=== PATIENT | male | born 1955 | race Caucasian/White ===

== ENCOUNTER 2020-12-28 16:43 | Emergency (ER) | payer MEDICARE, SELFPAY ==
--- NOTE | ~2020-12-28 | CT_ITS ---
EXAMINATION: CT ABDOMEN AND PELVIS WITHOUT CONTRAST CLINICAL INFORMATION: Abdominal pain, groin pain COMPARISON: 10/18/2018 TECHNIQUE: Multidetector volumetric imaging was performed from the superior aspect of the liver through the pubic symphysis. Sagittal and coronal reformatted images were obtained on the technologist's workstation. This CT examination was performed using dose optimization techniques as appropriate, variously including the following: *Automated exposure control *Adjustment of mA and/or kV according to patient size (this includes techniques or standardized protocols for targeted exams where dose is matched to indication/reason for exam; i.e. extremities or head) *Use of iterative reconstruction technique DLP: 681 mGy-cm FINDINGS: LUNG BASES: The visualized lung bases are unremarkable. LIVER, GALLBLADDER, AND BILIARY TREE: The liver is normal in size, shape, and attenuation. No biliary ductal dilatation is present. Slightly increased size of a now 1.1 cm (previously 0.8 cm hypodense lesion within the right hepatic lobe measuring internal attenuation of 1 Hounsfield unit. This most likely represents a small cyst or hemangioma. The gallbladder is unremarkable with no evidence of radiopaque gallstones, gallbladder wall thickening, or obvious pericholecystic inflammatory changes. PANCREAS: Unremarkable. SPLEEN: Unremarkable. ADRENAL GLANDS: Unremarkable. KIDNEYS AND URETERS: The kidneys are normal in size, shape, and attenuation. No hydronephrosis, hydroureter, or calculi seen. No perinephric stranding. BLADDER: Unremarkable. GASTROINTESTINAL TRACT: The small and large bowel are unremarkable. The appendix is unremarkable. ABDOMINAL WALL: Left inguinal hernia containing a loop of colon, incompletely imaged. LYMPH NODES: No lymphadenopathy within the abdomen or pelvis by CT criteria. VASCULAR: No evidence of abdominal aortic aneurysm. The IVC is singular and right-sided. PELVIC VISCERA: Unremarkable. OSSEOUS STRUCTURES: Degenerative changes of the hips and spine. No acute or suspicious osseous abnormality. CT/CT abdomen pelvis wo con IMPRESSION: Left inguinal hernia containing a loop of large bowel that, although is incompletely imaged, shows no signs of obstruction.
[2020-12-28 16:54] VITALS: BP 131/68; PULSE 68; RESP 16; TEMP 36.8; O2SAT 94; BMI 31.8
--- NOTE | 2020-12-28 17:08 | ED.GENADULT ---
HPI - General Adult General Chief complaint: General Medical Stated complaint: groin pain Source: patient Mode of arrival: ambulatory Limitations: no limitations History of Present Illness HPI narrative: 65-year-old male presents with left-sided groin pain that started this morning. States that when he coughs or moves the pain increases and he feels a bulge to the left lower quadrant. He does not report any difficulty urinating or having a bowel movement. Does not report fevers, chills, chest pain or pressure, palpitations, dizziness, lightheadedness, weakness, edema, abdominal distention, dysuria, hematuria, nausea, vomiting, diarrhea or constipation. Onset (ago): day(s) Location: abdomen Radiation: non-radiation Severity: moderate Severity scale (1-10): 6 Quality: aching Pain Consistency: constant Relieving factors: none Exacerbating factors: movement Associated symptoms: denies other symptoms Treatments prior to arrival: none Related Data Allergies Allergy/AdvReac Type Severity Reaction Status Date / Time acetaminophen [Tylenol] Allergy Unknown Verified 09/22/19 00:00 amoxicillin [AMOXICILLIN] Allergy Unknown SHORTNESS Unverified 02/08/20 14:56 OF BREATH aspirin Allergy Unknown Verified 09/22/19 00:00 dextromethorphan Allergy Unknown DYSPNEA Unverified 02/08/20 14:56 [From ROBAFEN DM COUGH-CHEST CONGEST] erythromycin base Allergy Unknown HIVES Unverified 02/08/20 14:56 [ERYTHROMYCIN BASE] guaifenesin Allergy Unknown DYSPNEA Unverified 02/08/20 14:56 [From ROBAFEN DM COUGH-CHEST CONGEST] ibuprofen [IBUPROFEN] Allergy Unknown HIVES Unverified 02/08/20 14:56 penicillin V Allergy Unknown Verified 09/22/19 00:00 E-mycin Allergy Unknown hives, SOB Uncoded 09/22/19 00:00 Motrin Allergy Unknown Uncoded 09/22/19 00:00 PCN Allergy Unknown dizziness, Uncoded 09/22/19 00:00 lightheades Robafen Allergy Unknown Uncoded 09/22/19 00:00 Review of Systems Review of Systems: Constitutional: No Fever, No Chills ENT/Mouth: No Ear Pain, No Hoarseness, No sore throat Eyes: No Eye Pain, No Swelling, No Redness, No Foreign Body Cardiovascular: No Chest Pain, No SOB Respiratory: No Cough, No Dyspnea Gastrointestinal: Positive right lower quadrant pain, No Nausea, No Vomiting, No Diarrhea, No abdominal Pain Genitourinary: No Dysuria, No Hematuria Musculoskeletal: No joint pain, No Myalgias, No Joint Swelling Skin: No Skin lacerations, No rash Neuro: No Weakness, No Numbness, No Paresthesias, No Loss of Consciousness, No Dizziness, No Headache Psych: No Anxiety/Panic, No Depression Heme/Lymph: no easy bruising, no Lymphadenopathy Endocrine: No Polyuria, No Polydipsia Yes all other systems are reviewed and are negative [facility] Past Medical History Attestation statement: The following information was validated with the patient. Source: old records reviewed Medical History Hypertension Social History Social History Advance Directives: No Advance Directives Information Provided: Yes Physical Exam Vital Signs: Vital Signs: Last Vital Signs Temp 98.3 F 12/28/20 16:54 Pulse 68 12/28/20 16:54 Resp 16 12/28/20 16:54 BP 131/68 12/28/20 16:54 Pulse Ox 94 12/28/20 16:54 Body Mass Index 31.8 Appearance: Alert. Oriented X3. No acute distress. Eyes: Pupils equal, round and reactive to light. ENT: Pharynx normal. Neck: Normal inspection. Neck supple. CVS: Normal heart rate and rhythm. Pulses normal. Respiratory: No respiratory distress. Breath sounds normal. Abdomen: Soft and tender to left inguinal with bulging consistent with bowel hernia. No testicular pain to palpation. Skin: Skin warm and dry. Normal skin color. Normal skin turgor. Extremities: No lower extremity edema. Moves all extremities against resistance. Gait well-balanced and well coordinated with cane. Neuro: No motor deficit. No sensory deficit. Cranial nerves 2-12 intact. Course Course Course Narrative: 65-year-old male presents with sudden onset of left lower quadrant pain. States that he feels a bulging and tightness in the inguinal area. Does not report any testicular pain, trouble with bowel or bladder. Denies fevers or chills. Appears nontoxic and is afebrile. Palpable bulging to the left inguinal consistent with hernia. Will order CT scan of abdomen to rule out incarceration. CT scan shows a inguinal hernia with bowel without incarceration. I was able to reduce this with a small amount of pressure, patient pain was alleviated immediately. I did discuss this case with on-call surgeon Dr. Bourgeois, plan of care is for patient to follow-up with Dr. Pro in the office on Wednesday. I did discuss this with the patient, patient agrees, and will call for an appointment. Patient verbalized understanding of and agrees with plan of care discharge home. Consultations Consultation #1: Christelle Time: 19:14 Medical Decision Making Differential Diagnosis Differential Diagnosis: Hernia, diverticulitis, bowel obstruction, acute abdomen, kidney stones Medical Records Medical records reviewed: Yes I reviewed the patient's medical records. Lab Data Lab results reviewed: Yes I reviewed the patient's lab results. Result diagrams: 12/28/20 17:42 12/28/20 17:42 Labs: Lab Results 12/28/20 12/28/20 12/28/20 Range/Units 17:42 17:42 19:06 WBC 8.8 (4.8-10.8) X10*3/uL RBC 4.64 (4.60-5.80) X10*6/uL Hgb 14.2 (14.0-18.0) g/dl Hct 41.3 L (42-52) % MCV 89.0 (80-98) fL MCH 30.6 (27.0-33.0) pg MCHC 34.4 (31.0-36.0) g/dl RDW 12.9 (11.0-16.0) % Plt Count 341 (160-400) X10*3/uL MPV 9.3 L (9.4-12.4) fL Immature Gran % (Auto) 0.2 (0.0-0.4) % Neut % (Auto) 59.0 (45-73) % Lymph % (Auto) 24.7 (20-40) % [place] % (Auto) 12.0 H (2-11) % Eos % (Auto) 3.4 (0-4) % Baso % (Auto) 0.7 (0-2) % Lymph # (Auto) 2.2 (1.2-4.9) X10*3/uL [place] # (Auto) 1.1 (0.1-1.2) X10*3/uL Eos # (Auto) 0.3 (0.0-0.4) X10*3/uL Baso # (Auto) 0.1 (0.0-0.2) X10*3/uL Abs Immat Gran (auto) 0.02 (0.00-0.03) X10*3/uL Absolute Neuts (auto) 5.2 (2.0-8.3) X10*3/uL Absolute Nucleated RBC 0.000 (0.0-0.012) X10*3/uL Nucleated RBC % (auto) 0.0 (0.0-0.2) /100WBC Sodium 142 (135-145) mmol/L Potassium 5.0 (3.3-5.1) mmol/L Chloride 106 (96-108) mmol/L Carbon Dioxide 26 (22-29) mmol/L Anion Gap 15 (12-20) BUN 13 (9-16) mg/dL Creatinine 1.02 (0.5-1.4) mg/dL Estim Creat Clear Calc 85.8 Estimated GFR > 60 Random Glucose 110 (60-115) mg/dL Calcium 9.7 (8.4-10.2) mg/dL Urine Color COLORLESS Urine Appearance CLEAR Urine pH 6.5 (5.0-8.0) Ur Specific [place] <= 1.005 (1.005-1.025) Urine Protein NEG (NEG-TRACE) MG/DL Urine Glucose (UA) NEG (NEG) MG/DL Urine Ketones NEG (NEG) MG/DL Urine Blood NEG (NEG) Urine Nitrite NEG (NEG) Ur Leukocyte Esterase NEG (NEG) Imaging Data CT abdomen pelvis: Attestation: I personally reviewed and interpreted this imaging study as follows: Radiologist's impression: FINDINGS: LUNG BASES: The visualized lung bases are unremarkable.? LIVER, GALLBLADDER, AND BILIARY TREE: The liver is normal in size, shape, and attenuation. No biliary ductal dilatation is present. Slightly increased size of a now 1.1 cm (previously 0.8 cm hypodense lesion within the right hepatic lobe measuring internal attenuation of 1 Hounsfield unit. This most likely represents a small cyst or hemangioma. The gallbladder is unremarkable with no evidence of radiopaque gallstones, gallbladder wall thickening, or obvious pericholecystic inflammatory changes.? PANCREAS: Unremarkable.? SPLEEN: Unremarkable.? ADRENAL GLANDS: Unremarkable.? KIDNEYS AND URETERS: The kidneys are normal in size, shape, and attenuation. No hydronephrosis, hydroureter, or calculi seen. No perinephric stranding. ? BLADDER: Unremarkable.? GASTROINTESTINAL TRACT: The small and large bowel are unremarkable. The appendix is unremarkable.? ABDOMINAL WALL: Left inguinal hernia containing a loop of colon, incompletely imaged.? LYMPH NODES: No lymphadenopathy within the abdomen or pelvis by CT criteria. VASCULAR: No evidence of abdominal aortic aneurysm. The IVC is singular and right-sided. PELVIC VISCERA: Unremarkable.? OSSEOUS STRUCTURES: Degenerative changes of the hips and spine. No acute or suspicious osseous abnormality.? CT/CT abdomen pelvis wo con IMPRESSION: ? Left inguinal hernia containing a loop of large bowel that, although is incompletely imaged, shows no signs of obstruction.? ECG Data Attestation: I personally reviewed and interpreted this ECG as follows: Prior ECG tracings: available for review Discharge Plan Discharge Clinical Impression: Hernia, inguinal, left Patient Disposition: Home, Self-Care Instructions: Inguinal Hernia (ED) Additional Instructions: You were evaluated for left groin pain. CT scan showed an inguinal hernia with a bowel loop. I was able to reduce or push that bowel loops back into place. You will need surgical consult for this problem. Please contact Dr. Pro on Wednesday. Thank you for choosing this emergency department for evaluation. Please follow-up with primary care physician as needed. Return to the emergency department for any new, concerning, or worsening symptoms. Referrals: Vijay Pro MD [Physician] - 2 days (Inguinal hernia) Interventions: ED Discharge Assessment Last Done: 12/28/20 19:42 Discharge Date/Time: 12/28/20 19:43
[2020-12-28 17:47] LABS: MANUAL DIFF FLAG NO
[2020-12-28 17:52] LABS: Basophils Absolute Auto 0.1 X10*3/uL (0.0-0.2); Basophils Percent Auto 0.7 % (0-2); Eosinophils Absolute Auto 0.3 X10*3/uL (0.0-0.4); Eosinophils Percent Auto 3.4 % (0-4); Hematocrit 41.3 % (42-52); Hemoglobin 14.2 g/dl (14.0-18.0); Imm Gran Abs Auto 0.02 X10*3/uL (0.00-0.03); Imm Gran Pct Auto 0.2 % (0.0-0.4); Lymphocytes Absolute Auto 2.2 X10*3/uL (1.2-4.9); Lymphocytes Percent Auto 24.7 % (20-40); Mean Corpuscular HGB Conc 34.4 g/dl (31.0-36.0); Mean Corpuscular Hemoglobin 30.6 pg (27.0-33.0); Mean Platelet Volume 9.3 fL (9.4-12.4); Monocytes Absolute Auto 1.1 X10*3/uL (0.1-1.2); Neutrophils Absolute Auto 5.2 X10*3/uL (2.0-8.3); Platelet Count 341 X10*3/uL (160-400); Red Blood Count 4.64 X10*6/uL (4.60-5.80); Red Cell Distribution Width 12.9 % (11.0-16.0); White Blood Count 8.8 X10*3/uL (4.8-10.8)
[2020-12-28 18:15] LABS: Anion Gap 15 (12-20); Blood Urea Nitrogen 13 mg/dL (9-16); Calcium 9.7 mg/dL (8.4-10.2); Carbon Dioxide 26 mmol/L (22-29); Chloride 106 mmol/L (96-108); Creatinine Clr Calc Pharmacy 85.8; Estimated Glomerular Filt Rate > 60; Glucose Random 110 mg/dL (60-115); Sodium 142 mmol/L (135-145)
[2020-12-28 19:13] LABS: Glucose Urine UA NEG (NEG); Leukocyte Esterase Urine NEG (NEG); Nitrite Urine NEG (NEG); PH 6.5 (5.0-8.0); Specific Gravity - Urine <= 1.005 (1.005-1.025); Urine Blood NEG (NEG); Urine Ketones NEG (NEG); Urine Protein NEG (NEG-TRACE)
[2020-12-28 19:19] LABS: Appearance Urine CLEAR; Color Urine COLORLESS
== END 2020-12-28 19:43 | disposition home or self-care (01) ==
PROVIDERS: Nurse Practitioner Family; Emergency Provider Internal Medicine; PCP Internal Medicine
DX: K40.90 Unilateral inguinal hernia, without obstruction or gangrene, not specified as recurrent (principal); R10.32 Left lower quadrant pain; I10 Essential (primary) hypertension
CPT/HCPCS: 36415; 74176; 80048; 81003; 85025; 99283; 99284

== ENCOUNTER → 2021-01-22 09:24 | Outpatient (BNVA) | payer MEDICARE, SELFPAY | PROVIDERS: PCP Internal Medicine; Referring Provider Internal Medicine; Visit Provider Surgery | DX: K40.90 Unilateral inguinal hernia, without obstruction or gangrene, not specified as recurrent (principal) | CPT/HCPCS: 99202 ==

== ENCOUNTER 2021-02-12 18:43 | Emergency (ER) | payer MEDICARE, SELFPAY ==
[2021-02-12 20:03] VITALS: BP 145/83; PULSE 90; RESP 16; TEMP 36.6; O2SAT 98; BMI 34.4
[2021-02-12 21:42] LABS: MANUAL DIFF FLAG NO
[2021-02-12 21:46] LABS: Basophils Absolute Auto 0.1 X10*3/uL (0.0-0.2); Basophils Percent Auto 0.7 % (0-2); Eosinophils Absolute Auto 0.3 X10*3/uL (0.0-0.4); Hemoglobin 14.7 g/dl (14.0-18.0); Imm Gran Abs Auto 0.02 X10*3/uL (0.00-0.03); Imm Gran Pct Auto 0.2 % (0.0-0.4); Lymphocytes Absolute Auto 2.2 X10*3/uL (1.2-4.9); Lymphocytes Percent Auto 21.6 % (20-40); Mean Corpuscular Hemoglobin 31.1 pg (27.0-33.0); Monocytes Absolute Auto 1.1 X10*3/uL (0.1-1.2); Monocytes Percent Auto 10.4 % (2-11); Neutrophils Absolute Auto 6.5 X10*3/uL (2.0-8.3); Neutrophils Percent Auto 64.1 % (45-73); Platelet Count 332 X10*3/uL (160-400); Red Blood Count 4.72 X10*6/uL (4.60-5.80); Red Cell Distribution Width 12.7 % (11.0-16.0); White Blood Count 10.1 X10*3/uL (4.8-10.8)
[2021-02-12 22:04] LABS: Alanine Aminotransferase 21 U/L (0-40); Albumin Level 4.3 g/dL (3.5-5.0); Alkaline Phosphatase 88 U/L (39-117); Anion Gap 12 (12-20); Aspartate Amino Transferase 17 U/L (5-37); Bilirubin Total 0.3 mg/dL (0.0-1.0); Blood Urea Nitrogen 15 mg/dL (9-16); Calcium 9.6 mg/dL (8.4-10.2); Carbon Dioxide 27 mmol/L (22-29); Chloride 105 mmol/L (96-108); Estimated Glomerular Filt Rate > 60; Glucose Random 112 mg/dL (60-115); Potassium 4.3 mmol/L (3.3-5.1); Sodium 140 mmol/L (135-145); Total Protein 7.6 g/dL (6.5-8.0)
--- NOTE | 2021-02-12 22:46 | ED_ITS ---
HPI - Abdominal Pain General Chief Complaint: Abdominal Pain Stated Complaint: Hernia Time Seen by Provider: 02/12/21 22:45 Source: patient Mode of arrival: ambulatory Limitations: no limitations History of Present Illness HPI narrative: Patient states his hernia is hurting him. States it was reduced 5 weeks ago MD elicited complaint: abdominal pain Onset (ago): hour(s) Pain Consistency: constant Location: other (left groin) Quality: aching and fullness Radiation: none Migration to: no migration Associated symptoms: denies other symptoms Related Data Home Medications Medication Instructions Recorded Confirmed fluticasone propionate 50 1 spray INTRANASAL BID 01/22/21 01/22/21 mcg/actuation nasal spray,suspension nifedipine 60 mg tablet,extended 60 mg PO DAILY 01/22/21 01/22/21 release 24 hr Allergies Allergy/AdvReac Type Severity Reaction Status Date / Time acetaminophen [Tylenol] Allergy Unknown Verified 09/22/19 00:00 amoxicillin [AMOXICILLIN] Allergy Unknown SHORTNESS Unverified 02/08/20 14:56 OF BREATH aspirin Allergy Unknown Verified 09/22/19 00:00 dextromethorphan Allergy Unknown DYSPNEA Unverified 02/08/20 14:56 [From ROBAFEN DM COUGH-CHEST CONGEST] erythromycin base Allergy Unknown HIVES Unverified 02/08/20 14:56 [ERYTHROMYCIN BASE] guaifenesin Allergy Unknown DYSPNEA Unverified 02/08/20 14:56 [From ROBAFEN DM COUGH-CHEST CONGEST] ibuprofen [IBUPROFEN] Allergy Unknown HIVES Unverified 02/08/20 14:56 penicillin V Allergy Unknown Verified 09/22/19 00:00 E-mycin Allergy Unknown hives, SOB Uncoded 09/22/19 00:00 Motrin Allergy Unknown Uncoded 09/22/19 00:00 PCN Allergy Unknown dizziness, Uncoded 09/22/19 00:00 lightheades Robafen Allergy Unknown Uncoded 09/22/19 00:00 Review of Systems Constitutional: Reports no additional constitutional complaints Eyes: Reports no additional eye complaints Denies dizziness Cardiovascular: Reports no additional cardiovascular complaints Respiratory: Reports as per HPI Gastrointestinal: Reports no additional gastrointestinal complaints Musculoskeletal: Reports no additional musculoskeletal complaints Skin/Breast: Denies rash Reports system reviewed and no additional complaints, except as documented, Denies dizziness and Denies Sensory deficit (Neuro) Psychiatric: Denies anxiety Physical Exam Vital Signs: Vital Signs: Last Vital Signs Temp 98 F 02/12/21 20:03 Pulse 90 02/12/21 20:03 Resp 16 02/12/21 20:03 BP 145/83 H 02/12/21 20:03 Pulse Ox 98 02/12/21 20:03 Body Mass Index 34.4 Const: General: healthy appearing Nutritional Appearance: average body habitus Orientation/consciousness: oriented to person and patient oriented x3 Limitations: no limitations HENMT: Head: Yes normal to inspection Ears: external ears normal General nose exam: Normal external nose present Mouth: Normal oral and palatal mucosa present and oropharynx normal Throat: Yes posterior oropharynx normal Eyes: General: appearance normal, both eyes and all related structures Neck: Other: supple Neck: Yes normal visual inspection Chest: Chest palpation & inspection: normal inspection of the chest Resp: Auscultation: clear to auscultation bilaterally Cardio: Jugular venous distension: no JVD Rate: regular rate Rhythm: regular rhythm Heart sounds: S1 normal heart sound present and S2 normal heart sound present GI: Inspection: Yes normal to inspection Palpation (GI): Soft to palpation, nontender and No hepatosplenomegaly present Auscultation: normal bowel sounds : Other: right inguinal hernia, no erythema, nontender, no induration General: Yes no CVA tenderness Back/Spine/Pelvis: Back: no CVA tenderness Skin: General skin exam: no rashes or lesions noted Neuro: General: oriented to person and patient oriented x3 Cranial nerves: Yes CN's II-XII intact bilaterally Motor exam (neuro): 5/5 motor strength present throughout Sensory Exam: No Sensory deficit (Neuro) Extrem: General: Yes normal to inspection Psych: Appearance: grossly normal Course Reevaluation(s) Reevaluation #1: Procedure: Manual reduction of left inguinal hernia. Patient to have surgery in a few days Time: 22:51 MDM - Abdominal Pain Lab Data Result diagrams: 02/12/21 21:35 02/12/21 21:35 Labs: Lab Results 02/12/21 02/12/21 Range/Units 21:35 21:35 WBC 10.1 (4.8-10.8) X10*3/uL RBC 4.72 (4.60-5.80) X10*6/uL Hgb 14.7 (14.0-18.0) g/dl Hct 42.0 (42-52) % MCV 89.0 (80-98) fL MCH 31.1 (27.0-33.0) pg MCHC 35.0 (31.0-36.0) g/dl RDW 12.7 (11.0-16.0) % Plt Count 332 (160-400) X10*3/uL MPV 9.0 L (9.4-12.4) fL Immature Gran % (Auto) 0.2 (0.0-0.4) % Neut % (Auto) 64.1 (45-73) % Lymph % (Auto) 21.6 (20-40) % [place] % (Auto) 10.4 (2-11) % Eos % (Auto) 3.0 (0-4) % Baso % (Auto) 0.7 (0-2) % Lymph # (Auto) 2.2 (1.2-4.9) X10*3/uL [place] # (Auto) 1.1 (0.1-1.2) X10*3/uL Eos # (Auto) 0.3 (0.0-0.4) X10*3/uL Baso # (Auto) 0.1 (0.0-0.2) X10*3/uL Abs Immat Gran (auto) 0.02 (0.00-0.03) X10*3/uL Absolute Neuts (auto) 6.5 (2.0-8.3) X10*3/uL Absolute Nucleated RBC 0.000 (0.0-0.012) X10*3/uL Nucleated RBC % (auto) 0.0 (0.0-0.2) /100WBC Sodium 140 (135-145) mmol/L Potassium 4.3 (3.3-5.1) mmol/L Chloride 105 (96-108) mmol/L Carbon Dioxide 27 (22-29) mmol/L Anion Gap 12 (12-20) BUN 15 (9-16) mg/dL Creatinine 1.02 (0.5-1.4) mg/dL Estim Creat Clear Calc 88.0 Estimated GFR > 60 Random Glucose 112 (60-115) mg/dL Calcium 9.6 (8.4-10.2) mg/dL Total Bilirubin 0.3 (0.0-1.0) mg/dL AST 17 (5-37) U/L ALT 21 (0-40) U/L Alkaline Phosphatase 88 (39-117) U/L Total Protein 7.6 (6.5-8.0) g/dL Albumin 4.3 (3.5-5.0) g/dL Discharge Plan Discharge Clinical Impression: Left inguinal hernia Patient Disposition: Home, Self-Care Instructions: Inguinal Hernia (ED) Prescriptions: No Action fluticasone propionate 50 mcg/actuation spray,suspension 1 spray intranasal BID RF: 0 nifedipine 60 mg tablet extended release 24hr 60 mg PO DAILY RF: 0 Referrals: Vijay Pro MD [Physician] - 1 week [facility] Past Medical History Medical History Hypertension Left inguinal hernia Neuropathy Surgical History History of laminectomy History of prostate surgery
== END 2021-02-12 23:02 | disposition home or self-care (01) ==
LOC: HO.ED 22:55
PROVIDERS: Emergency Provider Emergency Medicine; PCP Internal Medicine
DX: K40.90 Unilateral inguinal hernia, without obstruction or gangrene, not specified as recurrent (principal); R10.9 Unspecified abdominal pain; Z79.899 Other long term (current) drug therapy
CPT/HCPCS: 36415; 80053; 85025; 99283

== ENCOUNTER 2021-02-18 08:36 | Day surgery (SDC) | payer MEDICARE, SELFPAY ==
[2021-02-13 10:17] VITALS: BMI 33.0
--- NOTE | 2021-02-17 09:43 | HO.ANESPROP2 ---
Documented by User: Marii Allen NP 02/17/21 09:44 HPI - Anesthesia Eval Consult details Narrative: 66yo M for Left Hernia Repair Inguinal *Multiple Med Allergies* PMFSH Active Problems Active Problems: All Active Problems (Updated 02/12/21 @ 22:53 by Anuel Daniels MD) Left inguinal hernia (Acute) Neuropathy (Acute) Past Medical History Medical History (Updated 02/12/21 @ 22:53 by Anuel Daniels MD) Hypertension Left inguinal hernia Neuropathy Surgical History Surgical History (Updated 02/13/21 @ 10:20 by Deena Serra RN) H/O colonoscopy History of laminectomy History of prostate surgery Social History Social History Advance Directives Information Provided: No Meds Allergies Allergy/AdvReac Type Severity Reaction Status Date / Time acetaminophen [Tylenol] Allergy Unknown Unknown Verified 02/13/21 10:08 amoxicillin [AMOXICILLIN] Allergy Unknown SHORTNESS Unverified 02/08/20 14:56 OF BREATH aspirin Allergy Unknown Unknown Verified 02/13/21 10:08 dextromethorphan Allergy Unknown DYSPNEA Unverified 02/08/20 14:56 [From ROBAFEN DM COUGH-CHEST CONGEST] erythromycin base Allergy Unknown HIVES Unverified 02/08/20 14:56 [ERYTHROMYCIN BASE] guaifenesin Allergy Unknown DYSPNEA Unverified 02/08/20 14:56 [From ROBAFEN DM COUGH-CHEST CONGEST] ibuprofen [IBUPROFEN] Allergy Unknown HIVES Unverified 02/08/20 14:56 penicillin V Allergy Unknown Unknown Verified 02/13/21 10:08 Home Medications Medication Instructions Recorded Confirmed Last Taken Type fluticasone propionate 50 1 spray INTRANASAL BID 01/22/21 02/13/21 Unknown History mcg/actuation nasal spray,suspension nifedipine 60 mg tablet,extended 60 mg PO DAILY 01/22/21 02/18/21 02/18/21 06:25 History release 24 hr Exam Exam Date and Time: February 17, 2021 0943 Height,Weight and Vital Signs: Height 5 ft 10 in Weight 104.4 kg Pertinent Lab Results Pertinent Lab Results: Laboratory Tests 02/12/21 02/12/21 21:35 21:35 WBC 10.1 Hgb 14.7 Hct 42.0 Plt Count 332 Sodium 140 Potassium 4.3 Chloride 105 Carbon Dioxide 27 BUN 15 Creatinine 1.02 Assessment and Plan Assessment Anesthesia Assessment: Chart Reviewed Documented by User: Nash Roberson MD 02/18/21 10:27 [facility] Past Medical History Medical History (Updated 02/12/21 @ 22:53 by Anuel Daniels MD) Hypertension Left inguinal hernia Neuropathy Family History Family history of problems with anesthesia: No Surgical History Surgical History (Updated 02/13/21 @ 10:20 by Deena Serra RN) H/O colonoscopy History of laminectomy History of prostate surgery History of Problems with Anesthesia: No Social History Social History Advance Directives Information Provided: No Meds Allergies Allergy/AdvReac Type Severity Reaction Status Date / Time acetaminophen [Tylenol] Allergy Unknown Unknown Verified 02/13/21 10:08 amoxicillin [AMOXICILLIN] Allergy Unknown SHORTNESS Unverified 02/08/20 14:56 OF BREATH aspirin Allergy Unknown Unknown Verified 02/13/21 10:08 dextromethorphan Allergy Unknown DYSPNEA Unverified 02/08/20 14:56 [From ROBAFEN DM COUGH-CHEST CONGEST] erythromycin base Allergy Unknown HIVES Unverified 02/08/20 14:56 [ERYTHROMYCIN BASE] guaifenesin Allergy Unknown DYSPNEA Unverified 02/08/20 14:56 [From ROBAFEN DM COUGH-CHEST CONGEST] ibuprofen [IBUPROFEN] Allergy Unknown HIVES Unverified 02/08/20 14:56 penicillin V Allergy Unknown Unknown Verified 02/13/21 10:08 Home Medications Medication Instructions Recorded Confirmed Last Taken Type fluticasone propionate 50 1 spray INTRANASAL BID 01/22/21 02/13/21 Unknown History mcg/actuation nasal spray,suspension nifedipine 60 mg tablet,extended 60 mg PO DAILY 01/22/21 02/18/21 02/18/21 06:25 History release 24 hr Exam Airway Mallampati Class: I TM Dist: >3cm Neck ROM: Full Denture: Upper and Lower Loose/Missing/Broken Teeth: Yes, Upper and Lower Other: ok Assessment and Plan Assessment Anesthesia Assessment: Anesthesia Plan Discussed and Chart Reviewed Final Anesthetic Review Family History of Problems with Anesthesia: No History of Problems with Anesthesia: No NPO: Yes ASA Class: II Final Preanesthetic Review: No Changes in Pt Med Stat, Meds/Allgs Chart Reviewed, Consent Obtained/Reviewed and Anes Risks/Benef Reviewed Patient Risk: Low Procedure Risk: Low Anesthetic Plan Anesthetic Plan: GA and Agree w/ Assess. and Plan Disposition: Standard PACU
[2021-02-18] VITALS (7 sets, daily range): BP systolic 128–145; BP diastolic 75–80; PULSE 68–82; RESP 16–22; TEMP 36.2–36.9; O2SAT 96–98
[2021-02-18] MEDS: Lactated Ringers 1,000 ML 100 ML IVCONT (09:56)
--- NOTE | 2021-02-18 09:56 | MHC.SHP ---
Pre-Procedural Eval Section A Date of Service: 02/18/21 Section B Chief Complaint: Bilateral inguinal hernia Allergies: Allergies Allergy/AdvReac Type Severity Reaction Status Date / Time acetaminophen [Tylenol] Allergy Unknown Unknown Verified 02/13/21 10:08 amoxicillin [AMOXICILLIN] Allergy Unknown SHORTNESS Unverified 02/08/20 14:56 OF BREATH aspirin Allergy Unknown Unknown Verified 02/13/21 10:08 dextromethorphan Allergy Unknown DYSPNEA Unverified 02/08/20 14:56 [From ROBAFEN DM COUGH-CHEST CONGEST] erythromycin base Allergy Unknown HIVES Unverified 02/08/20 14:56 [ERYTHROMYCIN BASE] guaifenesin Allergy Unknown DYSPNEA Unverified 02/08/20 14:56 [From ROBAFEN DM COUGH-CHEST CONGEST] ibuprofen [IBUPROFEN] Allergy Unknown HIVES Unverified 02/08/20 14:56 penicillin V Allergy Unknown Unknown Verified 02/13/21 10:08 Plan I have reviewed the history and physical and performed a pertinent physical examination on my patient. No changes have occurred unless specified.
--- NOTE | 2021-02-18 11:35 | W.PM.OPN ---
Operative Note Operative Note Date of Service: 02/18/21 Narrative: Preop diagnosis: Left inguinal hernia Postop diagnosis: Left inguinal hernia, indirect Procedure: Repair of left inguinal hernia with mesh Surgeon: Vijay Pro MD fire control assistant: FRANCO Llanos Patient is a 66-year-old male with the large partially reducible mass in the left groin consistent with an inguinal hernia. He wanted to proceed with repair. He understood technique of repair with mesh. He was aware of the risks, benefits, and alternatives. He was brought to the operating room and placed supine on the table under general anesthesia via laryngeal mask airway. The left groin was prepped and draped in the usual sterile fashion. A surgical time-out was done. The patient received cefazolin 2 g IV preoperatively I infiltrated the area of of the planned line of incision using lidocaine 1%. I made a short incision using blade 15. This was carried down through the full-thickness skin subcutaneous fat. It is noted the patient has a thick amount of subcutaneous fat in the area. Weproceeded to continue to dissect until I was able to visualize the external oblique aponeurosis. I bluntly dissected the external oblique aponeurosis until was able to define the external ring. I incised the external oblique aponeurosis using electrocautery to enter the inguinal canal. I applied hemostats to the edges of the divided aponeurosis. I bluntly dissected the underside of the aponeurosis to create space for the mesh. I then bluntly dissected the spermatic cord and its contents using my index finger until was able to apply Maggie drain around this. This [place] drain was used for retraction. I examined the spermatic cord and identified the vas deferens and the accompanying vessels. There was note of a large fat containing hernia on the anterior medial aspect. I gently and bluntly dissected that off of the rest of the cord contents until was able to reduce this through the internal ring. This was an indirect hernia therefore. I reinforced the internal ring with a Prolene plug. This was secured with multiple Prolene to suture to shelving edge of the inguinal and laterally and the internal oblique superiorly and medially using the inner leaves of the plug. I then reinforced the floor of the canal with a keyhole mesh. The tails of the mesh were passed around the cord at the level of the internal ring. I secured the mesh with Prolene 2 sutures to the shelving edge of the inguinal ligament the internal oblique superiorly and medially as well as the pubic ramus inferomedially. I observed for hemostasis. Once hemostasis was confirmed I recreated. I then closed the external oblique aponeurosis running Dexon 2-0 stitch to re-create the internal ring. The thick subcutaneous layer was reapposed with Dexon 3-0 interrupted sutures. Skin closure was achieved with Dexon 4-0 subcuticular running sutures. I infiltrated the area with Marcaine 0.5% for postop analgesia. Steri-Strips and dressings were applied. The procedure was then completed The patient tolerated procedure well. There were no complication noted. Initial and final counts of sponges and instruments were correct. Estimated blood loss about 15 cc The patient was extubated without difficulty and transferred to the recovery room with stable vital signs.
--- NOTE | 2021-02-18 11:41 | PM.OP ---
Brief Operative Note Date of Service: 02/18/21 Pre-op diagnosis: Left inguinal hernia Post-op diagnosis: same (Left inguinal hernia, indirect) Procedure: Repair of left inguinal hernia with mesh Surgeon: Vijay Pro MD Anesthesia: GLMA Was an Drivability Technician used for this Procedure?: Yes Drivability Technician: Shayy Llanos Estimated blood loss (mL): 15 Pathology: none sent Condition: stable Disposition: PACU
[2021-02-18] MEDS: oxyCODONE HCl Immed Release 5 MG TABLET 10 MG PO (11:50)
[2021-02-18] MEDS: fentaNYL citrate/PF 100 MCG/2 ML VIAL 50 MCG IVPUSH ×2 (11:51→11:56)
== END 2021-02-18 13:05 | disposition home or self-care (01) ==
PROVIDERS: PCP Internal Medicine; Visit Provider Surgery
PROC: (CPT 49505; principal; 2021-02-18 10:50)
DX: K40.90 Unilateral inguinal hernia, without obstruction or gangrene, not specified as recurrent (principal); I10 Essential (primary) hypertension; Z79.899 Other long term (current) drug therapy
CPT/HCPCS: 49505; C1781; J0690; J1100; J2250; J2405; J3010

== ENCOUNTER → 2021-03-05 11:39 | Outpatient (BNVA) | payer MEDICARE, SELFPAY | PROVIDERS: PCP Internal Medicine; Referring Provider Internal Medicine; Visit Provider Surgery | DX: Z48.815 Encounter for surgical aftercare following surgery on the digestive system (principal); Z87.19 Personal history of other diseases of the digestive system | CPT/HCPCS: 99212 ==

== ENCOUNTER 2021-11-12 14:18 | Outpatient (REF) | payer MEDICARE, SELFPAY | END 2021-11-12 14:19 | disposition home or self-care (01) | LOC: HO.LNP 14:18 | PROVIDERS: Visit Provider Internal Medicine | DX: J02.9 Acute pharyngitis, unspecified (principal) | CPT/HCPCS: 87071 ==

== ENCOUNTER 2022-10-06 12:02 | Outpatient (REF) | payer MEDICARE, SELFPAY ==
--- NOTE | ~2022-10-06 | XR_ITS ---
EXAMINATION: XR HAND, LEFT CLINICAL INFORMATION: Arthritis pain left hand. Swelling. COMPARISON: None available. TECHNIQUE: PA, lateral, and oblique views of the left hand. FINDINGS: No fracture or dislocation. Severe degenerative changes of the first carpal metacarpal joint with joint space narrowing, sclerosis, and prominent osteophytes. There is increased ossification in the region of the joint. Small osteophytes throughout the interphalangeal joints. No osseous erosions. Degenerative change at the distal radioulnar joint. XR/XR hand LT min 3V IMPRESSION: Severe degenerative changes of the first carpometacarpal joint with increased ossification in the region of the joint.
== END 2022-10-06 12:03 | disposition home or self-care (01) ==
LOC: HO.XRAY 12:02
PROVIDERS: PCP Internal Medicine; Visit Provider Internal Medicine
DX: M79.642 Pain in left hand (principal)
CPT/HCPCS: 73130

== ENCOUNTER 2022-10-12 08:53 | Outpatient (REF) | payer MEDICARE, SELFPAY ==
[2022-10-12 09:05] LABS: MANUAL DIFF FLAG NO
[2022-10-12 09:39] LABS: Basophils Absolute Auto 0.1 X10*3/uL (0.0-0.2); Basophils Percent Auto 1.1 % (0-2); Eosinophils Absolute Auto 0.2 X10*3/uL (0.0-0.4); Eosinophils Percent Auto 3.3 % (0-4); Hematocrit 45.2 % (42.0-52.0); Hemoglobin 15.3 g/dl (14.0-18.0); Imm Gran Abs Auto 0.03 X10*3/uL (0.00-0.03); Imm Gran Pct Auto 0.5 % (0.0-0.4); Lymphocytes Absolute Auto 1.7 X10*3/uL (1.2-4.9); Lymphocytes Percent Auto 25.8 % (20-40); Mean Corpuscular HGB Conc 33.8 g/dl (31.0-36.0); Mean Corpuscular Hemoglobin 30.1 pg (27.0-33.0); Mean Platelet Volume 9.2 fL (9.4-12.4); Monocytes Absolute Auto 0.7 X10*3/uL (0.1-1.2); Monocytes Percent Auto 11.2 % (2-11); Neutrophils Absolute Auto 3.8 x10*3/uL (2.0-8.3); Neutrophils Percent Auto 58.1 % (45-73); Platelet Count 378 X10*3/uL (160-400); Red Blood Count 5.08 X10*6/uL (4.60-5.80); Red Cell Distribution Width 12.7 % (11.0-16.0); White Blood Count 6.6 X10*3/uL (4.8-10.8)
[2022-10-12 09:59] LABS: Color Urine Yellow; Glucose Urine UA Negative (Negative); Leukocyte Esterase Urine Small (1+) (Negative); Nitrite Urine Negative (Negative); PH 7.5 (5.0-9.0); UMIC TRIGGER UA YES; Urine Blood Negative (Negative); Urine Ketones Negative (Negative); Urine Protein Negative (Neg-Trace)
[2022-10-12 10:00] LABS: Appearance Urine Hazy
[2022-10-12 10:27] LABS: Bacteria Urine None Seen (None Seen); Other Crystals Urine Present; RBC Urine 0-2 /HPF (0-2); Squamous Epithelial Cell Urine 0-2 /HPF (0-2)
[2022-10-12 10:35] LABS: Alanine Aminotransferase 21 U/L (0-40); Albumin Level 4.3 g/dL (3.5-5.0); Alkaline Phosphatase 87 U/L (39-117); Anion Gap 14 (12-20); Aspartate Amino Transferase 15 U/L (5-37); Bilirubin Total 0.9 mg/dL (0.0-1.0); Blood Urea Nitrogen 16 mg/dL (9-16); Calcium 9.3 mg/dL (8.4-10.2); Carbon Dioxide 27 mmol/L (22-29); Chloride 106 mmol/L (96-108); Cholesterol 169 mg/dL; Estimated Glomerular Filt Rate > 60; Glucose Random 95 mg/dL (60-115); HDL Cholesterol 42 mg/dL; LDL Cholesterol Calculated 105 mg/dl; Potassium 4.5 mmol/L (3.3-5.1); Sodium 142 mmol/L (135-145); Total Protein 7.5 g/dL (6.5-8.0); Triglycerides 113 mg/dL
[2022-10-12 10:53] LABS: Prostate Specific Antigen 2.45 ng/mL (<0.05-4.0)
== END 2022-10-12 08:54 | disposition home or self-care (01) ==
LOC: HO.LAB 08:53
PROVIDERS: PCP Internal Medicine; Visit Provider Internal Medicine
DX: Z00.00 Encounter for general adult medical examination without abnormal findings (principal); Z12.5 Encounter for screening for malignant neoplasm of prostate; Z82.49 Family history of ischemic heart disease and other diseases of the circulatory system
CPT/HCPCS: 36415; 80053; 80061; 81001; 84153; 85025

== ENCOUNTER 2022-11-08 15:08 | Emergency (ER) | payer MEDICARE, SELFPAY ==
--- NOTE | ~2022-11-08 | XR_ITS ---
EXAMINATION: XR ABDOMEN KUB CLINICAL INDICATION: Assess stool burden. COMPARISON: None available. TECHNIQUE: AP view of the abdomen. FINDINGS: Mild to moderate stool burden throughout the colon The bowel gas pattern is normal with no evidence of ileus or obstruction. No unusual soft tissue calcifications are noted. The bones are unremarkable. XR/XR KUB IMPRESSION: As above noted. No obstruction.
[2022-11-08 15:14] VITALS: BP 145/78; PULSE 88; RESP 16; TEMP 36.7; O2SAT 96; BMI 33.0
[2022-11-08 17:13] VITALS: BP 151/91; PULSE 61; RESP 18; TEMP 36.3; O2SAT 98
--- NOTE | 2022-11-08 17:18 | PC.NURSE ---
Alert and oriented. States he is constipated but had a BM yesterday. States took many otc bowel meds but it was still hard to have a BM. Is going on vacation in one week and wants to be checked to make sure he does not have any type of obstruction. Denies pain with urination. Denies blood in stools.
--- NOTE | 2022-11-08 17:41 | ED_ITS ---
HPI - General Adult General Chief complaint: General Medical Stated complaint: constipation Time Seen by Provider: 11/08/22 17:31 Source: patient Mode of arrival: ambulatory Limitations: no limitations History of Present Illness HPI narrative: 67 yo male here with complaints of constipation x several days. Did take magnesium citrate yesterday and had a large BM last night. Still feels he didnt empty his bowels completely. No associated abdominal pain, vomiting, fever, urinary symptoms. +flatus Related Data Home Medications Medication Instructions Recorded Confirmed fluticasone propionate 50 1 spray intranasal BID 01/22/21 03/05/21 mcg/actuation nasal spray,suspension nifedipine 60 mg tablet,extended 60 mg PO DAILY 01/22/21 03/05/21 release 24 hr Previous Rx's Medication Instructions Recorded lactulose 10 gram/15 mL oral 15 ml PO BEDTIME PRN constipation 11/08/22 solution #237 mL Allergies Allergy/AdvReac Type Severity Reaction Status Date / Time acetaminophen [Tylenol] Allergy Unknown Unknown Verified 11/08/22 15:12 amoxicillin [AMOXICILLIN] Allergy Unknown SHORTNESS Verified 11/08/22 15:12 OF BREATH aspirin Allergy Unknown Unknown Verified 11/08/22 15:12 dextromethorphan Allergy Unknown DYSPNEA Verified 11/08/22 15:12 [From ROBAFEN DM COUGH-CHEST CONGEST] erythromycin base Allergy Unknown HIVES Verified 11/08/22 15:12 [ERYTHROMYCIN BASE] guaifenesin Allergy Unknown DYSPNEA Verified 11/08/22 15:12 [From ROBAFEN DM COUGH-CHEST CONGEST] ibuprofen [IBUPROFEN] Allergy Unknown HIVES Verified 11/08/22 15:12 penicillin V Allergy Unknown Unknown Verified 11/08/22 15:12 Review of Systems Review of Systems: Yes all other systems are reviewed and are negative Constitutional: Constitutional: Reports no additional constitutional complaints, Denies body ache(s), Denies chills, Denies fever(s), Denies headache(s) and Denies weakness Eyes: Eyes: Reports no additional eye complaints and Denies change in vision ENT: Reports system reviewed and no additional complaints, except as doc umented, Denies dizziness, Denies headache(s), Denies nasal congestion, Denies nasal discharge and Denies neck pain Cardiovascular: Cardiovascular: Reports no additional cardiovascular complaints, Denies chest pain, Denies leg edema and Denies dyspnea Respiratory: Respiratory: Reports no additional respiratory complaints, Denies cough and Denies dyspnea Gastrointestinal: Gastrointestinal: Reports no additional gastrointestinal complaints, Denies abdominal pain, Reports constipation, Denies diarrhea, Denies nausea and Denies vomiting Genitourinary: Genitourinary: Denies urinary incontinence Musculoskeletal: Musculoskeletal: Reports no additional musculoskeletal complaints, Denies back pain, Denies arthralgias, Denies joint swelling, Denies neck pain, Denies numbness and Denies tingling Integumentary/Breasts: Skin/Breast: Reports system reviewed and no additional complaints, except as docu and Denies rash Neurologic: Reports system reviewed and no additional complaints, except as documented, Denies dizziness, Denies headache(s), Denies numbness, Denies tingling and Denies weakness PMFSH Past Medical History Attestation statement: The following information was validated with the patient. Source: old records reviewed and nursing notes reviewed Medical History Hypertension Left inguinal hernia Neuropathy Surgical History H/O colonoscopy History of laminectomy History of prostate surgery Social History Social History Advance Directives: Yes Advance Directives Information Provided: No Advance Directives on File: No Physical Exam ED Vital Signs: Vital Signs - 24 hr 11/08/22 15:14 11/08/22 17:13 Temperature 98.1 F 97.3 F Pulse Rate 88 61 Respiratory Rate 16 18 Blood Pressure 145/78 H 151/91 H Pulse Oximetry 96 98 Oxygen Delivery Method Room Air Room Air BMI result Body Mass Index 33.0 Const General: cooperative, healthy appearing, comfortable and no acute distress Orientation/consciousness: patient oriented x3 Limitations: no limitations HENMT Head: Yes normal to inspection Ears: hearing grossly normal bilaterally Eyes General: appearance normal, both eyes and all related structures Pupils: Equal, round and reactive pupils present Neck Neck: Yes normal visual inspection Chest Chest palpation & inspection: normal inspection of the chest Resp Effort & Inspection: normal respiratory effort Auscultation: clear to auscultation bilaterally Cardio Rate: regular rate Rhythm: regular rhythm Peripheral pulses: Peripheral pulses 2+ throughout GI Inspection: Yes normal to inspection Palpation (GI): Soft to palpation and nontender Auscultation: normal bowel sounds General: Yes no CVA tenderness Back/Spine/Pelvis Back: no CVA tenderness Thoracic/Lumbar Spine: thoracic and lumbar spine normal to inspection Skin General skin exam: no rashes or lesions noted Neuro General: patient oriented x3 and moves all extremities Cranial nerves: Yes Equal, round and reactive pupils present Cognition (Neuro): normal cognition Gait exam (Neuro): Normal gait present Extrem General: Yes normal to inspection, Yes no pedal edema and Yes no calf tenderness Course Course Course Narrative: KUB shows mild stool burden. Patient will be discharged home with lactulose p.r.n.. Reviewed worrisome signs and symptoms when to return to the emergency room. Comfortable plan for discharge home. Medical Decision Making Medical Decision Making [facility] Narrative: 67 yo male with history of constipation (several ER visits for same) here with complaints of constipation x several days with no associated abdominal pain/vomiting. Did have large BM last night after magnesium citrate. Abdomen soft/nontender. +BS with flatus being passed. Will check KUB Differential Diagnosis Differential Diagnoses: The differential diagnosis associated with the presentation includes doubt SBO Discharge Plan Discharge Clinical Impression: Constipation Patient Disposition: Home, Self-Care Instructions: Constipation (ED), High Fiber Diet (ED) Additional Instructions: X-ray shows mild constipation Continue daily stool softener and fiber laxative Increase fluids, fiber in the diet Prescriptions: New lactulose 10 gram/15 mL solution 15 ml PO BEDTIME PRN (Reason: constipation) Qty: 237 0RF No Action fluticasone propionate 50 mcg/actuation spray,suspension 1 spray intranasal BID nifedipine 60 mg tablet extended release 24hr 60 mg PO DAILY Referrals: Vijay Carvalho MD [Primary Care Provider] - 1 week
== END 2022-11-08 18:56 | disposition home or self-care (01) ==
PROVIDERS: Emergency Provider Emergency Medicine; PCP Internal Medicine
DX: K59.00 Constipation, unspecified (principal)
CPT/HCPCS: 74018; 99283

== ENCOUNTER 2022-12-28 12:50 | Outpatient (AMB) | payer MEDICARE, SELFPAY ==
--- NOTE | 2022-12-28 12:52 | MHC.OFFVIS ---
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 Patient reports having off and on numbness for a year, he states that today is not numb. He reports that his numbness is more on the base of the thumb. Allergies acetaminophen [Tylenol] Allergy (Unknown, Verified 12/28/22 12:55) Unknown amoxicillin [AMOXICILLIN] Allergy (Unknown, Verified 12/28/22 12:55) SHORTNESS OF BREATH aspirin Allergy (Unknown, Verified 12/28/22 12:55) Unknown dextromethorphan [From ROBAFEN DM COUGH-CHEST CONGEST] Allergy (Unknown, Verified 12/28/22 12:55) DYSPNEA erythromycin base [ERYTHROMYCIN BASE] Allergy (Unknown, Verified 12/28/22 12:55) HIVES guaifenesin [From ROBAFEN DM COUGH-CHEST CONGEST] Allergy (Unknown, Verified 12/28/22 12:55) DYSPNEA ibuprofen [IBUPROFEN] Allergy (Unknown, Verified 12/28/22 12:55) HIVES penicillin V Allergy (Unknown, Verified 12/28/22 12:55) Unknown 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 Moore is a 67-year-old rgnwy-uxew-slhuxzal male who presents the office today for a left thumb pain. He reports that his pain has been ongoing for approximately 1 year. Reports that warm water makes his pain better. Gripping motions tend to illicit pain. He has not tried any sdjx-joq-eoadjfv remedies or bracing. [facility] Medical History Hypertension Left inguinal hernia Neuropathy Surgical History H/O colonoscopy History of laminectomy History of prostate surgery Review of Systems Const All systems reviewed & are unremarkable except as noted in HPI and below Physical Exam Vital Signs: BMI result Body Mass Index 33.0 Const General: cooperative, healthy appearing and no acute distress Resp Effort & Inspection: normal respiratory effort and able to speak in complete sentences Cardio Rate: regular rate Peripheral pulses: Peripheral pulses 2+ throughout GI Palpation (GI): Soft to palpation Skin Lesions: no lesions Rashes: no rashes Extrem Other: Left hand normal to inspection no ecchymosis erythema or edema. Able to flex extend all digits. Able to make a closed fist. Tenderness to palpation of the base of the thumb. Pain with thumb grind. Occasional numbness and tingling at the base of the thumb but does not extend distally. Capillary refill is brisk. Assessment & Plan Assessment & Plan (1) Osteoarthritis of carpometacarpal joint of left thumb: Code(s): M18.12 - Unilateral primary osteoarthritis of first carpometacarpal joint, left hand Plan: Mr. Moore is a 67-year-old lmfum-lgbw-uhvsawzw male who presents the office today for a left thumb pain. He reports that his pain has been ongoing for approximately 1 year. Reports that warm water makes his pain better. Gripping motions tend to illicit pain. He has not tried any bdlg-lfb-qdraoak remedies or bracing. I offered the patient comfort cool brace well in the office today off the shelf. The a I offered the patient a comfort cool brace off the shelf while in the office today. Patient has elected to try this. I discussed the role of cortisone injections however the patient is not experiencing a flare-up at this time and has elected to defer until his pain increases. Should he elect to move forward with cortisone injection in the future that should be booked with Dr. Keenan so she is able to use the FluoroScan. X-rays obtained on 10-06-22 reveal CMC joint osteoarthritis left thumb. His follow-up will be p.r.n. sooner if needed. Coding Level of Care Code New Pt Level 3 (15138) Diagnoses Osteoarthritis of carpometacarpal joint of left thumb M18.12
[2022-12-28 12:55] VITALS: BMI 33.0
== END 2022-12-28 13:07 | disposition home or self-care (01) ==
PROVIDERS: PCP Internal Medicine; Visit Provider Physician Assistant
DX: M18.12 Unilateral primary osteoarthritis of first carpometacarpal joint, left hand (principal)
CPT/HCPCS: 99203

== ENCOUNTER → 2022-12-28 12:50 | Outpatient (BNVA) | payer MEDICARE, SELFPAY | PROVIDERS: PCP Internal Medicine; Visit Provider Physician Assistant | DX: M18.12 Unilateral primary osteoarthritis of first carpometacarpal joint, left hand (principal) | CPT/HCPCS: 99202 ==

== ENCOUNTER 2023-07-21 11:10 | Day surgery (SDC) | payer MEDICARE, SELFPAY ==
--- NOTE | 2023-07-20 08:26 | P.CONAN_ITS ---
Documented by User: Marii Allen NP 07/20/23 08:26 HPI - Anesthesia Eval Consult details Narrative: 68yo M for Colonoscopy PMFSH Active Problems Active Problems: All Active Problems (Updated 12/28/22 @ 13:05 by Vashti Tan PA-C) Osteoarthritis of carpometacarpal joint of left thumb (Acute) History of left inguinal hernia repair (Acute) Left inguinal hernia (Acute) Neuropathy (Acute) Past Medical History Medical History (Updated 12/28/22 @ 13:05 by Vashti Tan PA-C) Left inguinal hernia Neuropathy Hypertension Family History Family history of problems with anesthesia: No Surgical History Surgical History (Updated 07/21/23 @ 12:11 by Chelsea Momin RN) Hx of left inguinal hernia repair H/O colonoscopy History of laminectomy History of prostate surgery History of Problems with Anesthesia: No Social History Social History Patient Tobacco Use Status: Never used Tobacco Use of substances other than those prescribed or required for medical reasons: No Are you DNR?: No Advance Directives: No Advance Directives Information Provided: Yes Meds Allergies Allergy/AdvReac Type Severity Reaction Status Date / Time acetaminophen [Tylenol] Allergy Unknown Unknown Verified 07/21/23 12:11 amoxicillin [AMOXICILLIN] Allergy Unknown SHORTNESS Verified 07/21/23 12:11 OF BREATH aspirin Allergy Unknown Unknown Verified 07/21/23 12:11 dextromethorphan Allergy Unknown DYSPNEA Verified 07/21/23 12:11 [From ROBAFEN DM COUGH-CHEST CONGEST] erythromycin base Allergy Unknown HIVES Verified 07/21/23 12:11 [ERYTHROMYCIN BASE] guaifenesin Allergy Unknown DYSPNEA Verified 07/21/23 12:11 [From ROBAFEN DM COUGH-CHEST CONGEST] ibuprofen [IBUPROFEN] Allergy Unknown HIVES Verified 07/21/23 12:11 penicillin V Allergy Unknown Unknown Verified 07/21/23 12:11 Home Medications Medication Instructions Recorded Confirmed Last Taken Type fluticasone propionate 50 1 spray intranasal BID 01/22/21 07/21/23 Unknown History mcg/actuation nasal spray,suspension nifedipine 60 mg tablet,extended 60 mg PO DAILY 01/22/21 07/21/23 02/18/21 06:25 History release 24 hr Assessment and Plan Assessment Anesthesia Assessment: Chart Reviewed Final Anesthetic Review Family History of Problems with Anesthesia: No History of Problems with Anesthesia: No Documented by User: Nash Roberson MD 07/21/23 12:31 [facility] Past Medical History Medical History (Updated 12/28/22 @ 13:05 by Vashti Tan PA-C) Left inguinal hernia Neuropathy Hypertension Surgical History Surgical History (Updated 07/21/23 @ 12:11 by Chelsea Momin RN) Hx of left inguinal hernia repair H/O colonoscopy History of laminectomy History of prostate surgery Social History Social History Patient Tobacco Use Status: Never used Tobacco Use of substances other than those prescribed or required for medical reasons: No Are you DNR?: No Advance Directives: No Advance Directives Information Provided: Yes Meds Allergies Allergy/AdvReac Type Severity Reaction Status Date / Time acetaminophen [Tylenol] Allergy Unknown Unknown Verified 07/21/23 12:11 amoxicillin [AMOXICILLIN] Allergy Unknown SHORTNESS Verified 07/21/23 12:11 OF BREATH aspirin Allergy Unknown Unknown Verified 07/21/23 12:11 dextromethorphan Allergy Unknown DYSPNEA Verified 07/21/23 12:11 [From ROBAFEN DM COUGH-CHEST CONGEST] erythromycin base Allergy Unknown HIVES Verified 07/21/23 12:11 [ERYTHROMYCIN BASE] guaifenesin Allergy Unknown DYSPNEA Verified 07/21/23 12:11 [From ROBAFEN DM COUGH-CHEST CONGEST] ibuprofen [IBUPROFEN] Allergy Unknown HIVES Verified 07/21/23 12:11 penicillin V Allergy Unknown Unknown Verified 07/21/23 12:11 Home Medications Medication Instructions Recorded Confirmed Last Taken Type fluticasone propionate 50 1 spray intranasal BID 01/22/21 07/21/23 Unknown History mcg/actuation nasal spray,suspension nifedipine 60 mg tablet,extended 60 mg PO DAILY 01/22/21 07/21/23 02/18/21 06:25 History release 24 hr Exam Airway Mallampati Class: II TM Dist: <=3cm Neck ROM: Full Denture: Upper and Lower Heart: ok Lungs: ok Assessment and Plan Assessment Anesthesia Assessment: Anesthesia Plan Discussed Final Anesthetic Review NPO: Yes ASA Class: II Final Preanesthetic Review: No Changes in Pt Med Stat, Meds/Allgs Chart Reviewed, Consent Obtained/Reviewed and Anes Risks/Benef Reviewed Patient Risk: Intermediate Procedure Risk: Low Anesthetic Plan Anesthetic Plan: MAC: and Agree w/ Assess. and Plan Disposition: Standard PACU
[2023-07-21 12:06] VITALS: BMI 30.7
[2023-07-21 12:17] VITALS: BP 128/84; PULSE 87; RESP 18; TEMP 37.2; O2SAT 97
[2023-07-21] MEDS: Lactated Ringers 1,000 ML 100 ML IVCONT (12:28)
--- NOTE | 2023-07-21 13:02 | MHC.SHP ---
Pre-Procedural Eval Section A - 24 Hr Update-Section A only Date of Service: 07/21/23 Section B - Complete if H&P > 30 days Chief Complaint: screening Details of Present Illness: see H&P no changes Relevant Family History (Specify if Yes): No Relevant Social History: None Present Medications: see Short Stay Collaborative assessment Medical History: No relevant PMH Allergies: Allergies Allergy/AdvReac Type Severity Reaction Status Date / Time acetaminophen [Tylenol] Allergy Unknown Unknown Verified 07/21/23 12:11 amoxicillin [AMOXICILLIN] Allergy Unknown SHORTNESS Verified 07/21/23 12:11 OF BREATH aspirin Allergy Unknown Unknown Verified 07/21/23 12:11 dextromethorphan Allergy Unknown DYSPNEA Verified 07/21/23 12:11 [From ROBAFEN DM COUGH-CHEST CONGEST] erythromycin base Allergy Unknown HIVES Verified 07/21/23 12:11 [ERYTHROMYCIN BASE] guaifenesin Allergy Unknown DYSPNEA Verified 07/21/23 12:11 [From ROBAFEN DM COUGH-CHEST CONGEST] ibuprofen [IBUPROFEN] Allergy Unknown HIVES Verified 07/21/23 12:11 penicillin V Allergy Unknown Unknown Verified 07/21/23 12:11 Review of Systems Sugical H&P ROS: Negative: Constitution, Cardiovascular, Respiratory, Neurological, Psychiatric, Hem-Onc, Allergic/Immunologic, Gastrointestinal, Genitourinary, Musculoskeletal, Integumentary, Endocrine and Eyes/Ears/Nose/Throat Exam Surgical H&P Exam: Normal: HEENT, Normal: Heart, Normal: Lungs, Normal: Extremities, Normal: Abdomen, Normal: Skin and Normal: Neurological Plan Diagnosis/Plan: Unchanged I have reviewed the history and physical and performed a pertinent physical examination on my patient. No changes have occurred unless specified. Time Spent With Patient Time: Total time managing care of this patient today ____ minutes.
[2023-07-21 13:44] VITALS: BP 133/67; PULSE 80; RESP 18; TEMP 36.3; O2SAT 97
[2023-07-21 13:59] VITALS: BP 132/81; PULSE 82; RESP 16; TEMP 37.1; O2SAT 97
--- NOTE | 2023-07-21 14:12 | OP_ITS ---
DATE OF SERVICE: 07/21/2023 SURGEON: Kj Small MD INDICATIONS: Colon cancer screening. PREOPERATIVE DIAGNOSIS: POSTOPERATIVE DIAGNOSIS: PROCEDURE PERFORMED: ESTIMATED BLOOD LOSS: COMPLICATIONS: ANESTHESIA: Monitored anesthesia care. ASSISTANTS: SPECIMENS: PROCEDURES PERFORMED: Colonoscopy to the terminal ileum with biopsy and snare polypectomy. DESCRIPTION OF PROCEDURE: A history and physical were performed. The risks and benefits of the procedure were explained to the patient. Informed consent was obtained. The patient was placed in the left lateral decubitus position. The Olympus video colonoscope was introduced into the rectum after digital rectal exam was performed and was found to be normal. The scope was advanced to the cecum without difficulty. The cecum was identified by transillumination, palpation, and identification of ileocecal valve. Examination was performed. The scope was removed. He tolerated the procedure well. He was returned to recovery area in stable condition. FINDINGS: The terminal ileum was examined and appeared normal. The visualized colonic mucosa was normal. The quality of the prep was good. A single polyp in the cecum measuring less than 5 mm was removed with biopsy forceps. At 70 cm, there was a 7 mm polyp, which was removed with a hot snare and recovered via suction. No other polyps were identified. Retroflexed examination showed small internal hemorrhoids. IMPRESSION: Colon polyps. RECOMMENDATION: Follow up the biopsy results. MD SUSAN Seay/BREANAL / [id number]
== END 2023-07-21 14:40 | disposition home or self-care (01) ==
PROVIDERS: PCP Internal Medicine; Visit Provider Internal Medicine Gastroenterology
PROC: 0DJD8ZZ Inspection of Lower Intestinal Tract, Via Natural or Artificial Opening Endoscopic (ICD-10-PCS; CPT 45378; principal; 2023-07-21 13:00)
DX: Z12.11 Encounter for screening for malignant neoplasm of colon (principal); Z83.719 Family history of colon polyps, unspecified; D12.0 Benign neoplasm of cecum; D12.4 Benign neoplasm of descending colon; K64.8 Other hemorrhoids; I10 Essential (primary) hypertension; N40.0 Benign prostatic hyperplasia without lower urinary tract symptoms; M19.90 Unspecified osteoarthritis, unspecified site; Z79.899 Other long term (current) drug therapy; Z88.0 Allergy status to penicillin; Z88.1 Allergy status to other antibiotic agents; Z98.890 Other specified postprocedural states
CPT/HCPCS: 45385; 45380; 88305; J2704

== ENCOUNTER 2023-11-29 08:56 | Outpatient (REF) | payer MEDICARE, SELFPAY ==
[2023-11-29 09:17] LABS: MANUAL DIFF FLAG NO
[2023-11-29 09:33] LABS: Basophils Absolute Auto 0.1 X10*3/uL (0.0-0.2); Basophils Percent Auto 1.3 % (0-2); Eosinophils Absolute Auto 0.3 X10*3/uL (0.0-0.4); Eosinophils Percent Auto 4.1 % (0-4); Hematocrit 44.5 % (42.0-52.0); Hemoglobin 15.2 g/dl (14.0-18.0); Imm Gran Abs Auto 0.02 X10*3/uL (0.00-0.03); Imm Gran Pct Auto 0.3 % (0.0-0.4); Lymphocytes Absolute Auto 1.6 X10*3/uL (1.2-4.9); Lymphocytes Percent Auto 23.5 % (20-40); Mean Corpuscular HGB Conc 34.2 g/dl (31.0-36.0); Mean Corpuscular Hemoglobin 30.7 pg (27.0-33.0); Mean Corpuscular Volume 89.9 fL (80.0-98.0); Mean Platelet Volume 9.1 fL (9.4-12.4); Monocytes Absolute Auto 0.8 X10*3/uL (0.1-1.2); Monocytes Percent Auto 11.3 % (2-11); Neutrophils Absolute Auto 4.1 x10*3/uL (2.0-8.3); Neutrophils Percent Auto 59.5 % (45-73); Platelet Count 327 X10*3/uL (160-400); Red Blood Count 4.95 X10*6/uL (4.60-5.80); Red Cell Distribution Width 12.6 % (11.0-16.0); White Blood Count 6.9 X10*3/uL (4.8-10.8)
[2023-11-29 09:55] LABS: Alanine Aminotransferase 22 U/L (0-40); Albumin Level 4.4 g/dL (3.5-5.0); Alkaline Phosphatase 82 U/L (39-117); Anion Gap 12 (12-20); Aspartate Amino Transferase 16 U/L (5-37); Bilirubin Total 0.7 mg/dL (0.0-1.0); Blood Urea Nitrogen 15 mg/dL (9-16); Calcium 9.1 mg/dL (8.4-10.2); Carbon Dioxide 28 mmol/L (22-29); Chloride 106 mmol/L (96-108); Cholesterol 169 mg/dL (<200); Estimated Glomerular Filt Rate > 60; Glucose Fasting 101 mg/dL (60-99); HDL Cholesterol 44 mg/dL (>40); LDL Cholesterol Calculated 99 mg/dL (<100); Potassium 4.3 mmol/L (3.3-5.1); Sodium 142 mmol/L (135-145); Total Protein 7.9 g/dL (6.5-8.0); Triglycerides 132 mg/dL (<150)
[2023-11-29 10:57] LABS: Prostate Specific Antigen 2.19 ng/mL (<0.05-4.0)
== END 2023-11-29 08:57 | disposition home or self-care (01) ==
LOC: HO.LAB 08:56
PROVIDERS: PCP Internal Medicine; Visit Provider Internal Medicine
DX: I10 Essential (primary) hypertension (principal); M54.9 Dorsalgia, unspecified; R35.1 Nocturia; Z12.5 Encounter for screening for malignant neoplasm of prostate
CPT/HCPCS: 36415; 80053; 80061; 84153; 85025

== ENCOUNTER 2024-04-01 13:41 | Emergency (ER) | payer MEDICARE, SELFPAY ==
--- NOTE | ~2024-04-01 | US_ITS ---
EXAMINATION: US TRIPLEX LOWER EXTREMITY, LEFT CLINICAL INFORMATION: Calf tender to palpation COMPARISON: None available. TECHNIQUE: Color-flow triplex imaging with spectral analysis and compression Doppler were performed on the left lower extremity. FINDINGS: Respiratory variation, normal compression and augmented flow are noted throughout the left lower extremity. The visualized common femoral vein, superficial femoral vein, profunda femoral vein, popliteal vein and midcalf peroneal and posterior tibial venous segments show no evidence of deep venous thrombosis. There is no Santos's cyst. US/US venous duplex LE LT IMPRESSION: No evidence of deep venous thrombosis involving the left lower extremity. Electronically signed by: Av Medel MD 04/01/2024 03:41 PM EST
--- NOTE | 2024-04-01 13:54 | ED.SKABFB ---
HPI - Skin/Abscess/Foreign Bdy General Chief complaint: Skin/Abscess/Foreign Body Stated complaint: l leg red swollen Time Seen by Provider: 04/01/24 15:58 Source: patient Mode of arrival: ambulatory Limitations: no limitations History of Present Illness HPI narrative: Patient is a 69-year-old male who presents to the emergency department for evaluation of left leg swelling to the left calf, pruritic rash over the anterior radiation in the posterior calf. Onset over the past 10 days. Reports mild discomfort to the posterior calf with redness, a scab posterior to the knee and proximal calf. Admits to a history of psoriasis, has a small area on his abdomen as well that appears consistent with his psoriasis or eruptions Related Data Home Medications ?Medication ?Instructions ?Recorded ?Confirmed fluticasone propionate 50 1 spray intranasal BID 01/22/21 07/21/23 mcg/actuation nasal spray,suspension nifedipine 60 mg tablet,extended 60 mg PO DAILY 01/22/21 07/21/23 release 24 hr Previous Rx's ?Medication ?Instructions ?Recorded lactulose 10 gram/15 mL oral 15 ml PO BEDTIME PRN constipation 11/08/22 solution #237 mL cephalexin 500 mg capsule 500 mg PO QID #28 caps 04/01/24 doxycycline hyclate 100 mg capsule 100 mg PO BID #14 caps 04/01/24 Allergies Allergy/AdvReac Type Severity Reaction Status Date / Time acetaminophen [Tylenol] Allergy Unknown Unknown Verified 04/01/24 13:58 amoxicillin [AMOXICILLIN] Allergy Unknown SHORTNESS Verified 04/01/24 13:58 OF BREATH aspirin Allergy Unknown Unknown Verified 04/01/24 13:58 dextromethorphan Allergy Unknown DYSPNEA Verified 04/01/24 13:58 [From ROBAFEN DM COUGH-CHEST CONGEST] erythromycin base Allergy Unknown HIVES Verified 04/01/24 13:58 [ERYTHROMYCIN BASE] guaifenesin Allergy Unknown DYSPNEA Verified 04/01/24 13:58 [From ROBAFEN DM COUGH-CHEST CONGEST] ibuprofen [IBUPROFEN] Allergy Unknown HIVES Verified 04/01/24 13:58 penicillin V Allergy Unknown Unknown Verified 04/01/24 13:58 Review of Systems Review of Systems: Yes all other systems are reviewed and are negative PMFSH Past Medical History Attestation statement: The following information was validated with the patient. Source: old records reviewed Medical History Left inguinal hernia Neuropathy Hypertension Surgical History Hx of left inguinal hernia repair H/O colonoscopy History of laminectomy History of prostate surgery Social History Social History Patient Tobacco Use Status: Never used Tobacco Physical Exam Vital Signs: Vital Signs: Last Vital Signs Temp 97.2 F 04/01/24 15:49 Pulse 95 04/01/24 15:49 Resp 18 04/01/24 15:49 BP 151/75 H 04/01/24 15:49 Pulse Ox 96 04/01/24 15:49 O2 Del Method Room Air 04/01/24 15:49 BMI result Body Mass Index 34.2 Appearance: Alert.?Oriented to person, place and time. No acute distress.?Normal affect. CVS: Heart sounds normal. Normal heart rate and rhythm.? Pulses normal.?? Respiratory: No respiratory distress.? Lung sounds clear to auscultation bilaterally?? Abdomen: Soft and non-tender. Normoactive bowel sounds. Extremities: 1+ right lower extremity edema, 3+ left lower extremity edema, Positive left calf tenderness upon palpation. 2+ DP/PT pulse. Erythematous maculopapular rash to the posterior calf, with a scabbed patch to the Flexeril surface of the left knee. Neuro: Moves all extremities spontaneously. Sensation intact bilaterally. No focal neuro deficits. Ambulates with normal steady gait. Medical Decision Making Medical Decision Making MDM Narrative: Patient is a 69-year-old male presents emergency department for evaluation of left lower extremity redness swelling and a pruritic rash as per HPI. Admits to a history of psoriasis. 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 Has extensive erythema to the posterior calf with tenderness upon palpation. Venous duplex ultrasound was obtained to exclude DVT and is negative.. 2+ DP/PT pulse bilaterally. Extremities neurovascularly intact distally. No open wounds or lesions are noted. He is ambulatory with a mildly antalgic gait. Patient advised to refrain from topical steroid creams despite their usefulness in alleviating the pruritus, it may worsen the infection and he verbalized understanding of this. Differential Diagnosis Differential Diagnoses: The differential diagnosis associated with the presentation includes (See narrative above) Admission/Observation Consideration of admission/observation: Escalation of care including admission/observation considered (See narrative above) Independent Interpretation I performed an independent interpretation of an: Ultrasound (no DVT) Radiology Impression Discussion of test interpretation with radiology: I have reviewed the radiologist's reading. Radiologist Impression: US/US venous duplex LE LT IMPRESSION: No evidence of deep venous thrombosis involving the left lower extremity. Prescription Management I considered prescription management with: Pain Medication and Antibiotic Discharge Plan Discharge Clinical Impression: Cellulitis of lower extremity Qualifiers: Laterality: left Qualified Code(s): L03.116 - Cellulitis of left lower limb Patient Disposition: Home, Self-Care Instructions: Cellulitis (ED) Additional Instructions: As discussed, you are being prescribed antibiotics for treatment of cellulitis to your left leg. Do not stop taking earlier skipped any doses even if you begin to notice improvement. On doxycycline, do not take pills immediately before going to bed and swallow pills with plenty of water. Avoid direct sunlight, iron, antacids, and Pepto Bismol. Call your provider if you develop new ringing in your ears, new problems hearing, dizziness, difficulty swallowing, rash, abdominal discomfort, nausea, or diarrhea.? The patch on the back of the knee is concerning for eczema versus psoriasis, you admitted to having history of psoriasis. It is important not to use any topical steroid cream such as hydrocortisone which can be available [id number], although this may help with itch it may worsening infection. Follow-up with your primary care doctor. Prescriptions: New cephalexin 500 mg capsule 500 mg PO QID Qty: 28 0RF doxycycline hyclate 100 mg capsule 100 mg PO BID Qty: 14 0RF No Action lactulose 10 gram/15 mL solution 15 ml PO BEDTIME PRN (Reason: constipation) Qty: 237 0RF fluticasone propionate 50 mcg/actuation spray,suspension 1 spray intranasal BID nifedipine 60 mg tablet extended release 24hr 60 mg PO DAILY Referrals: Vijay Carvalho MD [Primary Care Provider] - Interventions: ED Discharge Assessment Last Done: 04/01/24 15:49 Print Language: [place]
[2024-04-01 13:55] VITALS: BP 139/78; PULSE 94; RESP 16; TEMP 36.3; O2SAT 97; BMI 34.2
[2024-04-01 15:49] VITALS: BP 151/75; PULSE 95; RESP 18; TEMP 36.2; O2SAT 96
== END 2024-04-01 17:03 | disposition home or self-care (01) ==
PROVIDERS: Emergency Provider Emergency Medicine; PCP Internal Medicine
DX: L03.116 Cellulitis of left lower limb (principal); M79.662 Pain in left lower leg; I10 Essential (primary) hypertension; Z79.899 Other long term (current) drug therapy
CPT/HCPCS: 93971; 99282; 99284

== ENCOUNTER 2024-10-06 11:29 | Outpatient (AMB) | payer MEDICARE, SELFPAY ==
--- NOTE | 2024-10-06 11:34 | A.OFFPC_ITS ---
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 Manager Required: No Allergies acetaminophen [Tylenol] Allergy (Unknown, Verified 10/06/24 11:40) Unknown amoxicillin [AMOXICILLIN] Allergy (Unknown, Verified 10/06/24 11:40) SHORTNESS OF BREATH aspirin Allergy (Unknown, Verified 10/06/24 11:40) Unknown dextromethorphan [From ROBAFEN DM COUGH-CHEST CONGEST] Allergy (Unknown, Verified 10/06/24 11:40) DYSPNEA erythromycin base [ERYTHROMYCIN BASE] Allergy (Unknown, Verified 10/06/24 11:40) HIVES guaifenesin [From ROBAFEN DM COUGH-CHEST CONGEST] Allergy (Unknown, Verified 10/06/24 11:40) DYSPNEA ibuprofen [IBUPROFEN] Allergy (Unknown, Verified 10/06/24 11:40) HIVES penicillin V Allergy (Unknown, Verified 10/06/24 11:40) Unknown Tobacco use date assessed: 10/06/24 Fall risk assessment: 2 + Falls in past year Last assessed Fall Risk: 10/06/24 Dental Screening Dental Screen Date: 10/06/24 Did you have a dental visit in the last 12 months?: No Did you have a dental problem in the last 6 months where you did not have access to dental care?: No Was dental information given to patient?: Patient has dentist HPI HPI Comments History of Present Illness Details The patient is a 69 year old male with a past medical history of hypertension, hyperlipidemia, obeity, cellulitis, neck & back pain presenting for follow up CV: on nifedipine. Blood pressure is well controlled. no chest pain History of elevated psa. Nocutria-2x/night. Had prostate laser surgery prior to the pandemic Has had increasing neuropathy of the bilateral hands and legs-numbness, tingling, mild pain. History of cervical surgery. Chronic low back and neck pain Colon polyps 07/21/2023 q 5 years. ROS see HPI PHYSICAL EXAM: GENERAL: Alert and oriented x 3. NAD EYES: EOMI. Anicteric. HENT: Moist mucous membranes. No scleral icterus. No cervical lymphadenopathy. LUNGS: Clear to auscultation bilaterally. CARDIOVASCULAR: Regular rate and rhythm. No murmur. No JVD. ABDOMEN: Soft, non-tender +bs EXTREMITIES: No edema. Non-tender. SKIN: No rashes or lesions. Warm. NEUROLOGIC: No focal neurological deficits. CN II-XII grossly intact PSYCHIATRIC: Cooperative. 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 (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) Hearing needs: No Vision needs: Yes Physical exam (Primary Care) Vital Signs: Last Vital Signs Temp 98.6 F 10/06/24 11:43 Pulse 89 10/06/24 11:43 Resp 16 10/06/24 11:43 BP 134/70 10/06/24 11:43 Pulse Ox 96 10/06/24 11:43 Oxygen Delivery Method Room Air 10/06/24 11:43 BMI result Body Mass Index 33.6 Tobacco/Smoking Status: Tobacco use Status Tobacco use date assessed 10/06/24 10/06/24 11:44 Patient Tobacco Use Status Never used Tobacco 10/06/24 11:37 e-Cigarette/Vaping Use Never Used 10/06/24 11:44 Coding Level of Care Code New Pt Level 4 (67494) Complex EM visit Add On G2211 Diagnoses Neuropathy G62.9 Primary hypertension I10 Hypertension type: primary hypertension Assessment & Plan Assessment & Plan (1) Neuropathy: Code(s): G62.9 - Polyneuropathy, unspecified Category: Medical (2) Hypertension: Code(s): I10 - Essential (primary) hypertension Category: Medical Qualifiers: Hypertension type: primary hypertension Qualified Code(s): I10 - Essential (primary) hypertension Plan 69 year old to establish care Past medical, surgical, social reviewed HTN-well controlled Neuropathy-check labs, if normal xray lumbar and cervical spine Orders: Orders Hemoglobin A1c Today G62.9 - Polyneuropathy, unspecified, I10 - Essential (primary) hypertension, Z12.5 - Encounter for screening for malignant neoplasm of prostate, Z13.228 - Encounter for screening for other metabolic disorders Comprehensive Met. Panel Today G62.9 - Polyneuropathy, unspecified, I10 - Essential (primary) hypertension, Z12.5 - Encounter for screening for malignant neoplasm of prostate, Z13.228 - Encounter for screening for other metabolic disorders Complete Blood Count Auto Diff Today G62.9 - Polyneuropathy, unspecified, I10 - Essential (primary) hypertension, Z12.5 - Encounter for screening for malignant neoplasm of prostate, Z13.228 - Encounter for screening for other metabolic disorders Lipid Panel Today Z13.220 - Encounter for screening for lipoid disorders Prostate Specific Antigen Today G62.9 - Polyneuropathy, unspecified, I10 - E ssential (primary) hypertension, Z12.5 - Encounter for screening for malignant neoplasm of prostate, Z13.228 - Encounter for screening for other metabolic disorders Vitamin B12 and Folate Today G62.9 - Polyneuropathy, unspecified, I10 - Essential (primary) hypertension, Z12.5 - Encounter for screening for malignant neoplasm of prostate, Z13.228 - Encounter for screening for other metabolic disorders Lyme IgG/IgM w/reflex to WB Today G62.9 - Polyneuropathy, unspecified, I10 - Essential (primary) hypertension, Z12.5 - Encounter for screening for malignant neoplasm of prostate, Z13.228 - Encounter for screening for other metabolic disorders TSH reflex Free T4 Today G62.9 - Polyneuropathy, unspecified, I10 - Essential (primary) hypertension, Z12.5 - Encounter for screening for malignant neoplasm of prostate, Z13.228 - Encounter for screening for other metabolic disorders
[2024-10-06 11:43] VITALS: BP 134/70; PULSE 89; RESP 16; TEMP 37; O2SAT 96; BMI 33.6
--- OUTSIDE RECORDS SUMMARY | 2024-10-06 11:47 | XMS_ITS ---
Author Organization [facility] Address [address] [place] [address] Care Team Providers Care Sales And Marketing Representative Name Role Phone Vijay Carvalho MD Primary Care Provider Kj Abel Jr REASON FOR VISIT pathology/ 5 yr colon recall Encounters Encounter Location Date Provider Diagnosis [facility] [address] [place] [address] 07/28/2023 Kj Small Jr Plan Of Treatment No Information Progress Notes * AUDRA PARADA EDOB:1954 (68 yo M)Acc No.[id number]:07/28/2023 Patient:?AUDRA PARADA :1955???Age:68 Y???Sex:Male Address:[address] [place] [address] * true * Date:? Generated for Angelica blake/Zakiya/eTransmitting on:?10/06/2024 11:47 AM EDT
--- OUTSIDE RECORDS SUMMARY | 2024-10-06 11:47 | XMS_ITS ---
Author Organization [facility] Address [address] [place] [address] Care Team Providers Care Harness Fitter Name Role Phone Vijay Carvalho MD Primary Care Provider Kj Abel Jr REASON FOR VISIT screening Encounters Encounter Location Date Provider Diagnosis [facility] Outpatient [address] [place] [phone] 07/21/2023 Kj Small Jr Encounter for screening colonoscopy Z12.11 and Colon polyps K63.5 Assessments Encounter Date Diagnosis (ICD Code) Assessment Notes Treatment Notes Treatment Clinical Notes Section Notes 07/21/2023 Encounter for screening colonoscopy (ICD-10 - Z12.11) 07/21/2023 Colon polyps (ICD-10 - K63.5) Plan Of Treatment No Information Progress Notes * AUDRA PARADA EDOB:1954 (69 yo M)Acc No.[id number]:07/21/2023 COLON WITH MAC Patient:?AUDRA PARADA Provider:?Kj Small MD :1955???Age:68 Y???Sex:Male Harsha e:07/21/2023 Address:[address] [place] Pcp:Vijay Carvalho MD Subjective: * Chief Complaints: * ???1. Screening. * Medical History:? Objective: * Vitals:? Assessment: * Assessment: 1.?Encounter for screening c olonoscopy - Z12.11 (Primary)???2.?Colon polyps - K63.5??? Plan: * Treatment: * Procedure Codes:?14926 LESIO N REMOVAL COLONOSCOPY, 83120 COLONOSCOPY AND BIOPSY, Modifiers: 59 , 7740F INTRVL 3+YRS PTS CLNSCP DOCD * * The named appointment provid er may or may not be the originator of this progress note, and it is not deemed complete until electronically signed by the appointment provider. Sign off status: Pending * Provider:?Kj Small MD Date:?0 07/21/2023 Generated for Angelica blake/Zakiya/Sabrinasmitting on:?10/06/2024 11:47 AM EDT
--- OUTSIDE RECORDS SUMMARY | 2024-10-06 11:47 | XMS_ITS | Patient Health Record ---
Author Organization [facility] Address [address] [place] [address] Care Team Providers Care Asset Protection Lead Name Role Phone Vijay Carvalho MD Primary Care Provider Kj Abel Jr Unavailable Allergies Allergen (clinical drug ingredient) Drug/Non Drug Allergy documented on EMR Reaction Allergy Type Onset Date Status Penicillin Unknown Drug Allergy Active erythromycin Erythromycin Unknown Drug Allergy A ctive Reason For Referral No Information Medications Medication SIG (Take, Route, Frequency, Duration) Notes Start Date End Date Status NIFEdipine ER Osmotic Release 60 MG Oral for 90 Active Immunizations Vaccine Route Administration Date Status Comme nts Influenza Unknown 05/24/2023 Administered Social History Tobacco Use: Social History Observation Description Date Details (start date - stop date) Never Smoker NA - NA Tobacco Use/Smoking Question Answer Notes Patient is a nonsmoker Alcohol Screen Question Answer Notes Did you have a drink contain ing alcohol in the past year? Yes How often did you have a dri nk containing alcohol in the past year? Monthly or less (1 point) How many drinks did you have on a typical day when you were drinking in the past year? 1 or 2 drinks (0 point) How often did you have 6 or more drinks on one occasion in the past year? Never (0 point) Points 1 Interpretation Negative Problems Problem Type SNOMED Code ICD Code Onset Dates Problem Status W/U Status Risk Notes Problem 106114085 Colon cancer screening (Z12.11) Active confirmed Problem 637053043 Family history of colonic polyps (Z83.719) Active confirmed Plan Of Treatment Future Test Test Name Order Date COLONOSCOPY 06/09/2023 Insurance Providers Payer Name Payer Address Payer Phone Subscriber Number Group Number Insured Name Patient Relationship to Insured Coverage Start Date Coverage End Date MEDICARE OF [place] [address] [place] [id number] AUDRA PARADA Self - patient is the insured [employer] ATT[employer] CLAIMS [address] [place] [phone] [id number] AUDRA PARADA Self - patient is the insured Medical (General) History Medical History History ICD Code Hypertension Osteoarthritis BPH and laser surgery Surgical History Surgery Date(Month/Year) spinal surgery 2004 laminectomy 2004
--- OUTSIDE RECORDS SUMMARY | 2024-10-06 11:47 | XMS_ITS ---
Author Organization [facility] Address [address] [place] [address] Care Team Providers Care Cake Froster Name Role Phone Vijay Carvalho MD Primary Care Provider Kj Abel Jr Unavailable Allergies Allergen (clinical drug ingredient) Drug/Non Drug Allergy documented on EMR Reaction Allergy Type Onset Date Status Penicillin Unknown Drug Allergy Active erythromycin Erythromycin Unknown Drug Allergy A ctive REASON FOR VISIT Patient presents today for a COLON SCREENING Medications Medication SIG (Take, Route, Frequency, Duration) Notes Start Date End Date Status NIFEdipine ER Osmotic Release 60 MG Oral for 90 Active Social History Tobacco Use: Social History Observation [...] Problem Status W/U Status Risk Notes Problem [id number] Colon cancer screening (Z12.11) Active confirmed Problem 023309968 Family history of colonic polyps (Z83.719) Active confirmed Vital Signs Temperature 98.9 degrees Fahrenheit 06/09/19 24 Blood pressure systolic 000 mm Hg 06/09/19 24 Blood pressure diastolic 00 mm Hg 024 Height 5 ft 10 in in 06/09/2023 Weight 241 lbs 06/09/2023 BMI 34.58 kg/m2 06/09/2023 Encounters Encounter Location Date Provider Diagnosis [facility] [address] [place] [address] 06/09/2023 Kj Small Jr Colon cancer screening Z12.11 and Family history of colonic polyps Z83.719 Assessments Encounter Date Diagnosis (ICD Code) Assessment Notes Treatment Notes Treatment Clinical Notes Section Notes 06/09/2023 Colon cancer screening (ICD-10 - Z12.11) Colonoscopy material was printed We discussed colonoscopy today. We discussed risks and benefits of the procedure today. He understands these and agrees to proceed. 06/09/2023 Family history of colonic polyps (ICD-10 - Z83.719) We discussed colonoscopy today. We discussed risks and benefits of the procedure today. He understands these and agrees to proceed. Plan Of Treatment Treatment Notes Assessment Notes Colon cancer screening Colonoscopy mater ial was printed Future Test Test Name Order Date COLONOSCOPY 06/09/2023 Next Appt Details Follow Up: 1 Year, Reason: Progress Notes * AUDRA MOORE EDOB:1954 (68 yo M)Acc No.[id number]:06/09/2023 Progress Notes Patient:?AUDRA MOORE Provider:?Kj Small MD :1955???Age:68 Y???Sex:Male Harsha e:06/09/2023 Address:[address] [place] [address], [place], [place] Pcp:Vijay Carvalho MD Subjective: * Chief Complaints: * ???1. Patient presents today for a COLON SCREENING. * HPI: ???New symptom(s):? Mr. Moore is a pleasant 68-year-old man seen today for his screening colonoscopy visit. He has no complaints of rectal bleeding or change in his bowel habits. Weight and appetite have been stable. He has no upper GI symptoms. He denies dysphagia, hematemesis, or melena. Previous colonoscopy in in August 2010 showed a tortuous sigmoid requiring abdominal pressure to reach the cecum. No polyps were seen. We reviewed this today. Five-year followup was recommended due to his family history. * ROS:?General/Constitutional:?Change in appetite?denies.?Fatigue?denies.?ENT:?Patient denies?difficulty swallowing.?Respiratory:?Patient denies?shortness of breath.?Cardiovascular:?Patient denies?chest pain.?Gastrointestinal:?Comments?See HPI for details.?Genitourinary:?Difficulty urinating?denies.?Incontinence?denies.?Musculoskeletal:?Patient denies?muscle aches.?Skin:?Patient denies?pruritis.?Neurologic:?Patient denies?low back pain.?Psychiatric:?Patient denies?mental or physical abuse.? * Medical History:?Hypertensio n, Osteoarthritis, BPH and laser surgery. * Surgical History:?spinal julian nhung 2004, laminectomy 2004. * Family History:?Father: dece ased, diagnosed with Colon polyps.?Mother: .? No family of colon cancer or liver cancer. * Social History:?Tobacco Use:?Tobacco Use/Smoking?Patient is a?nonsmoker.?Drugs/Alcohol:?Alcohol Screen?Did you have a drink containing alcohol in the past year??Yes,?How often did you have a drink containing alcohol in the past year??Monthly or less (1 point), How many drinks did you have on a typical day when you were drinking in the past year??1 or 2 drinks (0 point),?How often did you have 6 or more drinks on one occasion in the past year??Never (0 point),?Points?1,?Interpretation?Negative.?Miscellaneous:?Marital status: single. Occupation: retired. * Medications:?Taking NIFEdipi ne ER Osmotic Release 60 MG Tablet Extended Release 24 Hour Oral , Medication List reviewed and reconciled with the patient * Allergies:?Penicillin, Eryth romycin. Objective: * Vitals:?Wt: 241 lbs, Ht: 5 f t 10 in, BMI:34.58 Index, BP: 000/00 mm Hg, Temp: 98.9. * Examination: ???General Examination: ?GENERAL APPEARANCE:?in no acute distress.?HEAD:?normocephalic.?EYES:?sclera non-icteric.?ORAL CAVITY:?mucosa moist.?NECK/THYROID:?no lymphadenopathy.?SKIN:?anicteric.?HEART:?S1, S2 normal, no murmurs.?LUNGS:?clear to auscultation bilaterally.?CHEST:?normal shape and expansion.?ABDOMEN:?soft, nontender, nondistended, bowel sounds present, no organomegaly .?EXTREMITIES:?no clubbing, cyanosis, or edema.?PSYCH:?cognitive function intact.? Assessment: * Assessment: 1.?Colon cancer screening - Z12.11 (Primary)?2.?Family history of colonic polyps - Z83.719? We discussed colonoscopy tod ay. We discussed risks and benefits of the procedure today. He understands these and agrees to proceed. Plan: * Treatment: Notes: Colonoscopy material was printed.?? * Preventive Medicine:? ??Counseling:?Care goal follow-up plan:?Above Normal BMI Follow-up?Giving encouragement to exercise,?BMI management provided?Yes.? * Follow Up:?1 Year * * Sign off status: Completed true * Provider:?Kj Small MD Date:?0 06/09/2023 Generated for Printi hayden/Zakiya/eTransmitting on:?10/06/2024 11:47 AM EDT History and Physical Notes * HPI (History of Present Illness) Category Sub-Category Detail Notes Category Not es New symptom(s) Mr. Moore is a pleasant 68-year-old man seen today for his screening colonoscopy visit. He has no complaints of rectal bleeding or change in his bowel habits. Weight and appetite have been stable. He has no upper GI symptoms. He denies dysphagia, hematemesis, or melena. Previous colonoscopy in in August 2010 showed a tortuous sigmoid requiring abdominal pressure to reach the cecum. No polyps were seen. We reviewed this today. Five-year followup was recommended due to his family history. Examination Category Sub-Category Detail Notes Category Not es General Examination GENERAL APPEARANCE: in no acute di stress HEAD: normocephalic EYES: sclera non-icteric NECK/THYROID: no lymphadenopathy HEART: S1, S2 normal, no mu rmurs CHEST: normal shape and exp ansion LUNGS: clear to auscultatio n bilaterally ABDOMEN: soft, nontender, non distended, bowel sounds present, no organomegaly SKIN: anicteric EXTREMITIES: no clubbing, cyanosi s, or edema PSYCH: cognitive function i ntact ORAL CAVITY: mucosa moist
== END 2024-10-06 12:01 | disposition home or self-care (01) ==
LOC: HO.HMCHD 11:31
PROVIDERS: PCP Internal Medicine; Visit Provider Internal Medicine
DX: G62.9 Polyneuropathy, unspecified (principal); I10 Essential (primary) hypertension

== ENCOUNTER → 2024-10-06 11:29 | Outpatient (BNVA) | payer MEDICARE, SELFPAY | PROVIDERS: PCP Internal Medicine; Visit Provider Internal Medicine | DX: I10 Essential (primary) hypertension (principal); E78.5 Hyperlipidemia, unspecified; E66.9 Obesity, unspecified; G62.9 Polyneuropathy, unspecified; Z68.33 Body mass index [BMI] 33.0-33.9, adult | CPT/HCPCS: 99202 ==

== ENCOUNTER 2024-10-09 08:53 | Outpatient (REF) | payer MEDICARE, SELFPAY ==
--- OUTSIDE RECORDS SUMMARY | 2024-10-09 09:02 | XMS_ITS | Patient Health Record ---
Author Organization [facility] Address [address] [place] [address] Care Team Providers Care Medieval English Literature Professor Name Role Phone Vijay Carvalho MD Primary [...] Problem Status W/U Status Risk Notes Problem [id number] Colon cancer screening (Z12.11) Active confirmed Problem 623772367 Family history of colonic polyps (Z83.719) Active confirmed Plan Of Treatment Future Test Test Name Order Date COLONOSCOPY 06/09/2023 Insurance Providers Payer Name Payer Address Payer Phone Subscriber Number Group Number Insured Name Patient Relationship to Insured Coverage Start Date Coverage End Date MEDICARE OF [place] [address] [place] [address] [phone] [id number] AUDRA PARADA Self - patient is the insured MEDEX ATTN CLAIMS [address] [place] [address] [phone] [id number] AUDRA PARADA Self - patient is the insured Medical (General) History Medical History History ICD Code Hypertension Osteoarthritis BPH and laser surgery Surgical History Surgery Date(Month/Year) spinal surgery 2004 laminectomy 2004
--- OUTSIDE RECORDS SUMMARY | 2024-10-09 09:02 | XMS_ITS ---
Author Organization [facility] Address [address] [place] [address] Care Team Providers Care Electronics Design Engineer Name Role Phone Vijay Carvalho MD Primary Care Provider Kj Abel Jr [phone] REASON FOR VISIT screening Encounters Encounter Location Date Provider Diagnosis [facility] [address] [place] [phone] 07/21/2023 Kj Small Jr Encounter for screening colonoscopy Z12.11 and Colon polyps K63.5 Assessments Encounter Date Diagnosis (ICD Code) Assessment Notes Treatment Notes Treatment Clinical Notes Section Notes 07/21/2023 Encounter for screening colonoscopy (ICD-10 - Z12.11) 07/21/2023 Colon polyps (ICD-10 - K63.5) Plan Of Treatment No Information Progress Notes * AUDRA PARADA EDOB:1954 (69 yo M)Acc No.[id number]:07/21/2023 COLON WITH MAC Patient:?AUDRA PARADA Provider:?Kj Small MD :1955???Age:68 Y???Sex:Male Harsha e:07/21/2023 Address:[address] [place] Pcp:Vijay Carvalho MD Subjective: * Chief Complaints: * ???1. Screening. * Medical History:? Objective: * Vitals:? Assessment: * Assessment: 1.?Encounter for screening c olonoscopy - Z12.11 (Primary)???2.?Colon polyps - K63.5??? Plan: * Treatment: * Procedure Codes:?59409 LESIO N REMOVAL COLONOSCOPY, 32548 COLONOSCOPY AND BIOPSY, Modifiers: 59 , 8625F INTRVL 3+YRS PTS CLNSCP DOCD * * The named appointment provid er may or may not be the originator of this progress note, and it is not deemed complete until electronically signed by the appointment provider. Sign off status: Pending * Provider:?Kj Small MD Date:?0 07/21/2023 Generated for Angelica blake/Zakiya/Sabrinasmitting on:?10/09/2024 09:02 AM EDT
--- OUTSIDE RECORDS SUMMARY | 2024-10-09 09:02 | XMS_ITS ---
Author Organization [facility] Address [address] [place] [address] Care Team Providers Care Panel Lay Up Worker Name Role Phone Vijay Carvalho MD Primary [...] Problem Status W/U Status Risk Notes Problem [id number] Colon cancer screening (Z12.11) Active confirmed Problem 984158654 Family history of colonic polyps (Z83.719) Active confirmed Vital Signs Temperature 98.9 degrees Fahrenheit 06/09/19 24 Blood pressure systolic 000 mm Hg 06/09/19 24 Blood pressure diastolic 00 mm Hg 024 Height 5 ft 10 in in 06/09/2023 Weight 241 lbs 06/09/2023 BMI 34.58 kg/m2 06/09/2023 Encounters Encounter Location Date Provider Diagnosis [facility] [address] [place] [address] 06/09/2023 Kj Small Jr Colon cancer screening [...] * AUDRA MOORE EDOB:1954 (68 yo M)Acc No.[id number]:06/09/2023 Progress Notes Patient:?AUDRA MOORE Provider:?Kj Small MD :1955???Age:68 Y???Sex:Male Harsha e:06/09/2023 Address:[address] [place] [address], [place], [place] Pcp:Vijay Carvalho MD Subjective: * Chief Complaints: [...] MD Date:?0 06/09/2023 Generated for Printi hayden/Zakiya/eTransmitting on:?10/09/2024 09:02 AM EDT History and Physical Notes * [...]
--- OUTSIDE RECORDS SUMMARY | 2024-10-09 09:02 | XMS_ITS ---
Author Organization [facility] Address [address] [place] [address] Care Team Providers Care Material Handling Technician Name Role Phone Vijay Carvalho MD Primary Care Provider Kj Abel Jr REASON FOR VISIT pathology/ 5 yr colon recall Encounters Encounter Location Date Provider Diagnosis [facility] [address] [place] [address] 07/28/2023 Kj Small Jr Plan Of Treatment No Information Progress Notes * AUDRA PARADA EDOB:1954 (68 yo M)Acc No.[id number]:07/28/2023 Patient:?AUDRA PARADA :1955???Age:68 Y???Sex:Male Address:[address] [place] [address] * true * Date:? Generated for Angelica blake/Zakiya/eTransmitting on:?10/09/2024 09:02 AM EDT
[2024-10-09 10:20] LABS: MANUAL DIFF FLAG NO
[2024-10-09 10:49] LABS: Basophils Absolute Auto 0.1 X10*3/uL (0.0-0.2); Basophils Percent Auto 1.4 % (0-2); Eosinophils Absolute Auto 0.3 X10*3/uL (0.0-0.4); Hematocrit 45.3 % (42.0-52.0); Hemoglobin 15.5 g/dl (14.0-18.0); Imm Gran Abs Auto 0.01 X10*3/uL (0.00-0.03); Imm Gran Pct Auto 0.2 % (0.0-0.4); Lymphocytes Absolute Auto 1.7 X10*3/uL (1.2-4.9); Lymphocytes Percent Auto 29.4 % (20-40); Mean Corpuscular HGB Conc 34.2 g/dl (31.0-36.0); Mean Corpuscular Hemoglobin 30.6 pg (27.0-33.0); Mean Corpuscular Volume 89.3 fL (80.0-98.0); Mean Platelet Volume 9.5 fL (9.4-12.4); Monocytes Percent Auto 17.4 % (2-11); Neutrophils Absolute Auto 2.6 x10*3/uL (2.0-8.3); Neutrophils Percent Auto 46.6 % (45-73); Platelet Count 289 X10*3/uL (160-400); Red Blood Count 5.07 X10*6/uL (4.60-5.80); Red Cell Distribution Width 12.8 % (11.0-16.0); White Blood Count 5.6 X10*3/uL (4.8-10.8)
[2024-10-09 11:03] LABS: Estimated Average Glucose 108 mg/dL; Hemoglobin A1C 134.7445 umol/L; Hemoglobin A1c % 5.4 % (<6.0); Total Hemoglobin (HGBA1C) 3845.0926 umol/L
[2024-10-09 11:25] LABS: Alanine Aminotransferase 32 U/L (0-40); Albumin Level 4.3 g/dL (3.5-5.0); Alkaline Phosphatase 88 U/L (39-117); Anion Gap 11 (12-20); Aspartate Amino Transferase 28 U/L (5-37); Bilirubin Total 0.7 mg/dL (0.0-1.0); Blood Urea Nitrogen 16 mg/dL (9-16); Calcium 9.3 mg/dL (8.4-10.2); Carbon Dioxide 28 mmol/L (22-29); Chloride 105 mmol/L (96-108); Cholesterol 170 mg/dL (<200); Estimated Glomerular Filt Rate > 60; Glucose Random 101 mg/dL (60-115); HDL Cholesterol 41 mg/dL (>40); LDL Cholesterol Calculated 107 mg/dL (<100); Potassium 4.3 mmol/L (3.3-5.1); Sodium 140 mmol/L (135-145); TSH reflex Free T4 2.45 uIU/mL (0.32-4.0); Total Protein 7.8 g/dL (6.5-8.0); Triglycerides 110 mg/dL (<150)
[2024-10-09 11:33] LABS: Folate 6.6 ng/mL (> or = 4.0); Prostate Specific Antigen 2.48 ng/mL (<0.05-4.0); Vitamin B12 653 pg/mL (200-900)
[2024-10-12 03:23] LABS: Lyme Abs Screen <0.90 index
== END 2024-10-09 08:54 | disposition home or self-care (01) ==
LOC: HO.10HDL 08:53
PROVIDERS: Visit Provider Internal Medicine
DX: G62.9 Polyneuropathy, unspecified (principal); I10 Essential (primary) hypertension; Z12.5 Encounter for screening for malignant neoplasm of prostate; Z13.228 Encounter for screening for other metabolic disorders; Z13.220 Encounter for screening for lipoid disorders; Z13.1 Encounter for screening for diabetes mellitus
CPT/HCPCS: 36415; 80053; 80061; 82607; 82746; 83036; 84153; 84443; 85025; 86617; 86618

== ENCOUNTER 2024-11-30 09:32 | Outpatient (REF) | payer MEDICARE, SELFPAY ==
--- NOTE | ~2024-11-30 | XR_ITS ---
EXAMINATION: XR CERVICAL SPINE CLINICAL INFORMATION: G62.9 - Polyneuropathy, unspecified COMPARISON: None available. TECHNIQUE: AP oblique and lateral views. Atlantoodontoid view FINDINGS: Metallic plate placed anterior to the vertebral bodies C4-C6 with the metallic screws anchors in the vertebral bodies and no loosening or gross cortical disruption. Arthrodesis C4 C6. Marginal osteophyte formation C3-4. Osteopenia versus osteoporosis. Multilevel bilateral neuroforamina narrowing on a degenerative basis mostly on the right side from C4 to C6. Craniocervical junction is intact. XR/XR cervical spine 4V IMPRESSION: Multilevel cervical spondylosis. Status post ACDF, C4 C6. Electronically signed by: Dino Morales MD 11/30/2024 10:44 AM EDT
--- NOTE | ~2024-11-30 | XR_ITS ---
EXAMINATION: XR LUMBOSACRAL SPINE CLINICAL INFORMATION: G62.9 - Polyneuropathy, unspecified COMPARISON: None available. TECHNIQUE: AP and lateral views. FINDINGS: Multilevel syndesmophyte formation and marginal osteophyte formation and endplate sclerosis decreased intervertebral disc height throughout the axial skeleton. Old superior endplate compression deformities representing 20% volume loss at multiple levels. Grade 1 anterolisthesis L4-5. Grade 1 retrolisthesis L3-4. No acute cortical disruption. No lytic or blastic lesions. XR/XR lumbar spine 2-3V IMPRESSION: Multilevel thoracolumbar spondylosis resulting in grade 1 anterolisthesis L4-5 and grade 1 retrolisthesis L3-4. Electronically signed by: Dino Morales MD 11/30/2024 10:42 AM EDT
--- OUTSIDE RECORDS SUMMARY | 2024-11-30 10:04 | XMS_ITS | Patient Health Record ---
Author Organization [facility] Address [address] [place] [address] Care Team Providers Care Apns Name Role Phone Vijay Carvalho MD Primary [...] Problem Status W/U Status Risk Notes Problem [id number] Colon cancer screening (Z12.11) Active confirmed Problem 050265166 Family history of colonic polyps (Z83.719) Active confirmed Plan Of Treatment Future Test Test Name Order Date COLONOSCOPY 06/09/2023 Insurance Providers Payer Name Payer Address Payer Phone Subscriber Number Group Number Insured Name Patient Relationship to Insured Coverage Start Date Coverage End Date MEDICARE OF [place] [address] [place] [address] [id number] AUDRA PARADA Self - patient is the insured MED[employer] ATTN CLAIMS [address] [place] [address] [id number] AUDRA PARADA Self - patient is the insured Medical (General) History Medical History History ICD Code Hypertension Osteoarthritis BPH and laser surgery Surgical History Surgery Date(Month/Year) spinal surgery 2004 laminectomy 2004
== END 2024-11-30 09:33 | disposition home or self-care (01) ==
LOC: HO.XRAY 09:32
PROVIDERS: Visit Provider Internal Medicine
DX: G62.9 Polyneuropathy, unspecified (principal); M54.2 Cervicalgia; M54.50 Low back pain, unspecified; Z98.1 Arthrodesis status; M47.812 Spondylosis without myelopathy or radiculopathy, cervical region; M47.816 Spondylosis without myelopathy or radiculopathy, lumbar region
CPT/HCPCS: 72050; 72100

== ENCOUNTER → 2024-11-30 09:37 | Outpatient (BNV) | payer MEDICARE, SELFPAY | PROVIDERS: Visit Provider Radiology Diagnostic Radiology | DX: G62.9 Polyneuropathy, unspecified (principal); M47.815 Spondylosis without myelopathy or radiculopathy, thoracolumbar region; M47.812 Spondylosis without myelopathy or radiculopathy, cervical region | CPT/HCPCS: 72050; 72100 ==

== ENCOUNTER 2025-04-13 08:54 | Outpatient (AMB) | payer MEDICARE, SELFPAY ==
[2025-04-13 08:59] VITALS: BP 128/72; PULSE 61; TEMP 36.3; O2SAT 97; BMI 34.7
--- NOTE | 2025-04-13 08:59 | A.OFFPC_ITS ---
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 Required: No Accompanied by: Self / Same As Patient Allergies acetaminophen (Tylenol) Allergy (Unknown, Verified 04/13/25 08:59) Unknown amoxicillin (AMOXICILLIN) Allergy (Unknown, Verified 04/13/25 08:59) SHORTNESS OF BREATH aspirin Allergy (Unknown, Verified 04/13/25 08:59) Unknown dextromethorphan (From [facility] COUGH-[facility] CONGEST) Allergy (Unknown, Verified 04/13/25 08:59) DYSPNEA erythromycin base (ERYTHROMYCIN BASE) Allergy (Unknown, Verified 04/13/25 08:59) HIVES guaifenesin (From [facility] COUGH-CHEST CONGEST) Allergy (Unknown, Verified 04/13/25 08:59) DYSPNEA ibuprofen (IBUPROFEN) Allergy (Unknown, Verified 04/13/25 08:59) HIVES penicillin V Allergy (Unknown, Verified 04/13/25 08:59) Unknown Tobacco use date assessed: 04/13/25 Fall risk assessment: No Falls in past year Last assessed Fall Risk: 04/13/25 Dental Screening Dental Screen Date: 04/13/25 Did you have a dental visit in the last 12 months?: No Did you have a dental problem in the last 6 months where you did not have access to dental care?: No HPI HPI Comments History of Present Illness Details History of Present Illness The patient is a 70 year old individual presenting to follow up for management of chronic conditions. The patient has a medical history of high blood pressure, for which the patient takes nifedipine 60 mg. The patient has been diagnosed with arthritis in the right shoulder. A review of a cervical spine x-ray revealed mild degenerative changes, consistent with arthritis. The shoulder pain is intermittent and has been better recently. About a year and a half ago, the patient had cellulitis on the right leg. Currently, the patient has skin patches on the left leg, which are being treated with a topical cream that provides some relief from itching. The patient reports a general sense of fatigue but is sleeping okay. Blood work from two months ago showed normal thyroid function, cholesterol levels, liver function, and an A1c of 5.4. Medical History: - Hypertension, managed with Nifedipine 60 mg. - Arthritis of the right shoulder and ce rvical spine. - History of cellulitis on the right leg approximately 1.5 years ago. - Psoriasis on the left leg. Surgical History: - Two neurosurgeries in September and March of 2005. Medications: - Nifedipine 60 mg for high blood pressu re. - Flonase nasal spray for nasal congesti on. - Unspecified topical cream for psoriasi s on the left leg. Family History: - Father had psoriasis. - Grandfather had psoriasis. Diagnostic Results: - Labs (from September): - Thyroid function: Normal. - Total cholesterol: 170. - LDL cholesterol: 107. - Liver function tests: Normal. - Hemoglobin A1c: 5.4%. - Imaging: - Cervical spine X-ray: Showed mild dege nerative changes. Social History - Tobacco Use: Denies ever smoking. - Alcohol Use: Reports not drinking alco hol since the beginning of the pandemic. [facility] Medical History (Updated 04/13/25 @ 09:36 by Luis Blackwell MD) Psoriasis Left inguinal hernia Neuropathy Hypertension Surgical History Hx of left inguinal hernia repair H/O colonoscopy (~07/21/23) History of laminectomy History of prostate surgery Family History (Updated 04/13/25 @ 09:18 by Jessica Nichole MA) Mother No problems noted. Father No problems noted. Social History Housing: House Patient Tobacco Use Status: Never used Tobacco e-Cigarette/Vaping Use: Never Used Second Hand Smoke Exposure: No service: No Current occupational status: retired and disabled Current occupational exposures/hazards: No Cognitive needs: Yes (cane/walker) Hearing needs: No Vision needs: Yes Questionnaire PHQ-9 Over the last 2 weeks, how often have you been bothered by any of the following problems? 1. Little interest or pleasure in doing things: not at all 2. Feeling down, depressed, or hopeless: not at all 3. Trouble falling or staying asleep, or sleeping too much: not at all 4. Feeling tired or having little energy: not at all 5. Poor appetite or overeating: not at all 6. Feeling bad about yourself - or that you are a failure or have let yourself or your family down: not at all 7. Trouble concentrating on things, such as reading the newspaper or watching television: not at all 8. Moving or speaking so slowly that other people could have noticed. Or the opposite - being so fidgety or restless that you have been moving around a lot more than usual: not at all 9. Thoughts that you would be better off or of hurting yourself in some way: not at all Total score: 0 Depression Screening Interpretation: Negative Depression Screening Done: Yes Source: Developed by Drs. Mehran Ha, Niya Mckeon, Rubén Munoz and colleagues, with an educational rosa maria from [employer]. Thrive Questionnaire Date Thrive assessed: 04/13/25 I am a: Patient Within the past 12 months, did the food you bought not last and you didn't have the money to get more?: Never true Within the past 12 months, did you worry whether your food would run out before you got money to buy more?: Never true Do you have trouble paying for medicines?: No Do you have trouble getting transportation to medical appointments?: No Do you have trouble paying your heating and electricity bill?: No Do you have trouble taking care of your child, family member or friend?: No Do you have trouble with day-to-day activities such as bathing, preparing meals, shopping, managing finances, etc.?: No Are you currently unemployed and looking for a job?: No Are you interested in more education?: No THRIVE Score: 0 AUDIT C Alcohol Use Questionnaire (AUDIT-C) 1. How often do you have a drink containing alcohol?: Never 3. How often do you have six or more drinks on one occasion?: Never Total Score: 0 TANIKA-7 AMB Questionnaire TANIKA-7 Date TANIKA - 7 assessed: 04/13/25 Feeling nervous, anxious, or on edge: 0 = Not at all Not being able to stop or control worryin = Not at all Worrying too much about different things: 0 = Not at all Trouble relaxin = Not at all Being so restless that it is hard to sit still: 0 = Not at all Becoming easily annoyed or irritable: 0 = Not at all Feeling afraid as if something awful might happen: 0 = Not at all Total TANIKA-7 score (0-4 normal; 5-9 mild; 10-14 moderate; 15-21 severe): 0 Source: Developed by Drs. Mehran Ha, Niya Mckeon, Rubén Munoz and colleagues, with an educational rosa maria from [employer]. Review of Systems Narrative Review of Systems - Constitutional: Reports feeling tired. - Cardiovascular: Denies chest pains. - Gastrointestinal: Denies nausea or vomiting. - Musculoskeletal: Reports intermittent right shoulder pain which comes and goes. - Integumentary: Reports itchy patches on the left leg. - Respiratory/ENT: Reports congestion in the nose, which is relieved with Flonase. All systems reviewed & are unremarkable except as reviewed in HPI and above Physical exam (Primary Care) Vital Signs: Last Vital Signs Temp 97.4 F 04/13/25 08:59 Pulse 61 04/13/25 08:59 BP 128/72 04/13/25 08:59 Pulse Ox 97 04/13/25 08:59 Oxygen Delivery Method Room Air 04/13/25 08:59 BMI result Body Mass Index 34.7 Tobacco/Smoking Status: Tobacco use Status Tobacco use date assessed 04/13/25 04/13/25 09:01 Patient Tobacco Use Status Never used Tobacco 04/13/25 09:01 e-Cigarette/Vaping Use Never Used 04/13/25 09:01 PHQ-9: PHQ-9 Score PHQ-9: Total score 0 04/13/25 09:28 Depression Screening Interpretation: Negative Thrive Assessment: Date of Thrive Assessment Date Thrive assessed 04/13/25 04/13/25 09:01 Narrative Physical Exam General: Alert and oriented, Well nourished, No acute distress, Reports feeling tired. Eye: Pupils are equal, round and reactive to light, Intact accommodation, Extraocular movements are intact, Normal conjunctiva, Vision unchanged. HENT: Normocephalic, Atraumatic, Tympanic membranes are clear, Normal hearing, Oral mucosa is moist, No pharyngeal erythema, Ear canals patent. Respiratory: Lungs CTA bilaterally, No wheeze, Respirations are non-labored, Uses Flonase nasal spray for congestion. Cardiovascular: Regular rate, Regular rhythm, S1 auscultated, S2 auscultated, No murmur, Good pulses equal in all extremities, Normal peripheral perfusion, No edema. Gastrointestinal: Soft, Non-tender, Non-distended, Normal bowel sounds, No organomegaly. Musculoskeletal: Normal range of motion, Normal strength, No tenderness, No swelling, No deformity, Normal gait, Arthritis in right shoulder, Mild degenerative changes in cervical spine. Integumentary: Warm, Dry, [place], Intact, Psoriasis patches on left leg. Neurologic: Alert, Oriented, Normal sensory, Normal motor function, No focal defects, Cranial Nerves II-XII are grossly intact, Normal deep tendon reflexes. Psychiatric: Cooperative, Appropriate mood & affect, Normal judgment. Coding Level of Care Code Est Pt Level 4 (87198) Complex visit Add On G2211 Diagnoses Primary hypertension I10 Hypertension type: primary hypertension Psoriasis L40.9 Neck pain M54.2 Assessment & Plan Assessment & Plan (1) Hypertension: Comment: - Stable. - The patient will continue taking nifedipine 60 mg. - Blood pressure will be monitored. Code(s): I10 - Essential (primary) hypertension Category: Medical Qualifiers: Hypertension type: primary hypertension Qualified Code(s): I10 - Essential (primary) hypertension (2) Psoriasis: Comment: - Skin lesions on the left leg are consistent with psoriasis. - The patient is advised to continue using the topical cream. - A referral to a sales representative door to door will be considered if the condition worsens. Code(s): L40.9 - Psoriasis, unspecified Category: Medical (3) Neck pain: Comment: - The patient has arthritis in the right shoulder and mild degenerative changes in the cervical spine. - The patient is encouraged to stay active and continue moving to manage symptoms. Code(s): M54.2 - Cervicalgia Category: Medical Plan: Health Maintenance: - Recent blood work from September was reviewed, with all results including thyroid, cholesterol, liver function, and A1c being within normal limits. - Scheduled for a follow-up visit in 6 months. - Plan to repeat blood work one week before the next scheduled visit. - Advised to maintain physical activity to manage arthritis symptoms. Patient was informed and verbally consented to the use of an ambient scribe for clinic note documentation during this visit. Plan This is an initial visit to establish care. We reviewed the patient's medical history, including hypertension, arthritis, and a history of cellulitis. I examined the skin patches on the patient's left leg and assessed them to be psoriasis, not cellulitis, based on their appearance. We discussed that the patient should continue using the current topical cream, and we will consider a dermatology referral if the condition worsens. We reviewed recent blood work results from September, which were all within normal limits. We also discussed the patient's cervical spine X-ray, which showed mild degenerative changes consistent with arthritis, and I advised the patient to continue staying active. The plan is to continue current medications, schedule a follow-up in six months, and have repeat lab work done one week before that visit. The patient was in agreement with the plan. Orders: Orders Complete Blood Count Auto Diff 6 Months Z00.00 - Encounter for general adult medical examination without abnormal findings Comprehensive Met. Panel 6 Months Z00.00 - Encounter for general adult medical examination without abnormal findings Hemoglobin A1c 6 Months Z00.00 - Encounter for general adult medical examination without abnormal findings Lipid Panel 6 Months Z00.00 - Encounter for general adult medical examination without abnormal findings Microalbumin, Random (w Creat) 6 Months Z00.00 - Encounter for general adult medical examination without abnormal findings Syphilis Screen 6 Months Z00.00 - Encounter for general adult medical examination without abnormal findings TSH reflex Free T4 6 Months Z00.00 - Encounter for general adult medical examination without abnormal findings Vitamin D 25-OH Total 6 Months Z00.00 - Encounter for general adult medical examination without abnormal findings HIV Ab/Ag 6 Months Z00.00 - Encounter for general adult medical examination without abnormal findings Patient Instructions: - Continue taking nifedipine 60 mg for your high blood pressure. - Continue to use the topical cream on the psoriasis patches on your left leg as needed, especially if they itch. - You should not use the Flonase nasal spray too much; plan to let it run out and a new prescription may not be needed. - Keep moving and stay active, as this is good for your arthritis. - We will see you back in the office in six months, around September. - Please have your blood work done at the lab one week before your next appointment. You do not need to bring any paperwork for this. - If your psoriasis gets worse, please contact our office.
--- OUTSIDE RECORDS SUMMARY | 2025-04-13 09:02 | XMS_ITS | Patient Health Record ---
Author Organization [facility] Address [address] [place] [address] Care Team Providers Care Housing Project Manager Name Role Phone Deven (RETIRED) Vijay BOYER Primary Care Provide Kj Pizarro Jr Unavailable Allergies Allergen (clinical drug ingredient) Drug/Non Drug Allergy documented on EMR Reaction Allergy Type Onset Date Status erythromycin Erythromycin Unknown Drug Allergy A ctive Penicillin Unknown Drug Allergy Active Reason For Referral No Information Medications Medication SIG (Take, Route, Frequency, Duration) Notes Start Date End Date Status NIFEdipine ER Osmotic Release 60 MG Tablet Extended Release 24 Hour Oral; Duration: 90 Active Immunizations Vaccine Route Administration Date Status Comme nts Influenza Unknown 05/24/2023 Administered Social History Tobacco Use: Social History Observation Description Date Details (start date - stop date) Never Smoker NA - NA Social History Drugs/Alcohol: Social Info Question Answer Notes Alcohol Screen Did you have a drink containing alcohol in the past year? Yes How often did you have a drink containing alcohol in the past year? Monthly or less (1 point) How many drinks did you have on a typical day when you were drinking in the past year? 1 or 2 drinks (0 point) How often did you have 6 or more drinks on one occasion in the past year? Never (0 point) Points 1 Interpretation Negative Tobacco Use: Social Info Question Answer Notes Tobacco Use/Smoking Patient is a nonsmoker Additional Details Category Social Info Options Details Miscellaneous: Marital status: single Occupation: retired Problems Problem Type SNOMED Code ICD Code Onset Dates Problem Status W/U Status Risk Notes Problem Colon cancer screening (091871616) Colon cancer screening (Z12.11) Active confirmed Problem Family history of colonic polyps (Z83.719) Active confirmed Plan Of Treatment Future Test Test Name Order Date COLONOSCOPY 06/09/2023 Insurance Providers Payer Name Payer Address Payer Phone Subscriber Number Group Number Insured Name Patient Relationship to Insured Coverage Start Date Coverage End Date MEDICARE OF [place] [address] [place] [id number] AUDRA PARADA Self - patient is the insured [employer] CLAIMS [address] [place] [phone] [id number] AUDRA PARADA Self - patient is the insured Medical (General) History Medical History History ICD Code Hypertension Osteoarthritis BPH and laser surgery Surgical History Surgery Date(Month/Year) spinal surgery 2004 laminectomy 2004
== END 2025-04-13 09:34 | disposition home or self-care (01) ==
LOC: HO.HMCHD 08:54
PROVIDERS: Visit Provider Student in an Organized Health Care Education/Training Program
DX: I10 Essential (primary) hypertension (principal); L40.9 Psoriasis, unspecified; M54.2 Cervicalgia

== ENCOUNTER → 2025-04-13 08:54 | Outpatient (BNVA) | payer MEDICARE, SELFPAY | PROVIDERS: Visit Provider Student in an Organized Health Care Education/Training Program | DX: I10 Essential (primary) hypertension (principal); L40.9 Psoriasis, unspecified; M54.2 Cervicalgia; Z13.31 Encounter for screening for depression; Z13.39 Encounter for screening examination for other mental health and behavioral disorders | CPT/HCPCS: 96127; 99212 ==